=== PATIENT | male | born 1960 | race Caucasian/White ===

== ENCOUNTER → 2016-12-17 | Outpatient (CLI) | payer BC ==
[~2016-12-17] MED LIST: ALLO100T PO; ALLO300T2 PO; CYAN10005 PO; DICL1.3D21 TD; ENAL20TA PO; GLUCTAB4 PO; INSDGI SC; INSU100I2 SQ; METF-383 PO; PANT40TA PO; SILO8CAP PO; TPRSR50 PO; TRAM-453 PO; TYLOTC500 PO; ZOLP5TAB PO
[2016-12-17 13:38] LABS: BASO % 0.6 %; BASO ABS # 0.04 K/uL (0-0.2); COMPLETE YES; EOS % 4.5 %; HEMATOCRIT 38.9 % (42-52); IG% 0.3 %; MEAN CELL VOLUME 73.1 fL (80-100); MEAN CORPUSCULAR HEMOGLOBIN 22.9 pg (25-34); MEAN CORPUSCULAR HGB CONC 31.4 g/dl (32-36); MEAN PLATELET VOLUME 9.3 fL (7.4-10.4); MONO % 7.5 %; NEUT % 62.1 %; PLATELET COUNT 292 K/uL (130-400); RED BLOOD COUNT 5.32 M/uL (4.7-6.1)
[2016-12-17 14:14] LABS: ESTIMATED AVERAGE GLUCOSE 169 mg/dl; HA1C FLAG Normal (Normal)
== END | disposition home or self-care (01) ==
LOC: C.LABMFLN 08:05
PROVIDERS: ATTEND Family Medicine
DX: D64.9 Anemia, unspecified (principal); E11.9 Type 2 diabetes mellitus without complications

== ENCOUNTER → 2017-04-06 | Outpatient (CLI) | payer BC ==
[2017-04-06 13:23] LABS: BASO % 0.6 %; BASO ABS # 0.04 K/uL (0-0.2); COMPLETE YES; EOS % 5.5 %; HEMATOCRIT 42.7 % (42-52); IG% 0.6 %; LYMPH % 29.5 %; LYMPH ABS # 1.93 K/uL (1.2-3.4); MEAN CELL VOLUME 80.1 fL (80-100); MEAN CORPUSCULAR HEMOGLOBIN 26.5 pg (25-34); MEAN PLATELET VOLUME 9.2 fL (7.4-10.4); MONO % 6.6 %; NEUT % 57.2 %; PLATELET COUNT 268 K/uL (130-400); RED BLOOD COUNT 5.33 M/uL (4.7-6.1); WHITE BLOOD COUNT 6.54 K/uL (4.8-10.8)
[2017-04-06 13:39] LABS: ESTIMATED AVERAGE GLUCOSE 174 mg/dl; HA1C FLAG Normal (Normal)
[2017-04-06 14:00] LABS: BLOOD UREA NITROGEN 14 mg/dl (7-18); BUN/CREATININE RATIO 16.6 (10-20); CALCIUM 9.1 mg/dl (8.5-10.1); CARBON DIOXIDE 30 mmol/L (21-32); CHLORIDE 106 mmol/L (98-107); CREATININE 0.86 mg/dl (0.60-1.40); GLUCOSE 157 mg/dl (70-99); SODIUM 139 mmol/L (136-145)
[2017-04-06 14:05] LABS: FERRITIN 26.1 ng/ml (8.0-388.0); PHOSPHORUS 3.1 mg/dl (2.5-4.9)
--- NOTE | 2017-04-21 10:04 | CODING QUERY MEDICAL NECESSITY ---
SUPPORTING DIAGNOSIS NEEDED Dr. Bower, A supporting diagnosis is required for the test/procedure performed on this patient in order for us to be reimbursed by the patient's insurance. Please provide a supporting diagnosis for the following test/procedure listed below next to the test name along with your signature. *If there is no additional diagnosis for this patient that would support the following test/procedure please document that below next to the test/procedure. Test(s)/Procedure(s) that require a supporting diagnosis: * [id number] PSA DIAGNOSIS: DATE OF SERVICE: 04/06/17 Provider Signature: Date: Thank you Derek Gore [facility] Information Management Once completed, please kindly fax back to [phone] For questions please call [phone]
== END | disposition home or self-care (01) ==
LOC: C.LABMFLN 09:08
PROVIDERS: ATTEND Family Medicine
DX: C67.9 Malignant neoplasm of bladder, unspecified (principal); E11.9 Type 2 diabetes mellitus without complications; D64.9 Anemia, unspecified; N40.1 Benign prostatic hyperplasia with lower urinary tract symptoms

== ENCOUNTER → 2017-07-08 | Outpatient (CLI) | payer BC ==
[2017-07-08 13:45] LABS: ESTIMATED AVERAGE GLUCOSE 163 mg/dl; HA1C FLAG Normal (Normal)
== END | disposition home or self-care (01) ==
LOC: C.LABMFLN 09:39
PROVIDERS: ATTEND Family Medicine
DX: E11.42 Type 2 diabetes mellitus with diabetic polyneuropathy (principal)

== ENCOUNTER → 2017-10-14 | Outpatient (CLI) | payer BC ==
[2017-10-14 12:40] LABS: BASO % 0.3 %; BASO ABS # 0.02 K/uL (0-0.2); EOS % 1.8 %; EOS ABS # 0.13 K/uL (0-0.5); HEMATOCRIT 45.2 % (42-52); HEMOGLOBIN 15.1 g/dL (14.0-18.0); IG# 0.05 K/uL (0.00-0.02); LYMPH ABS # 1.66 K/uL (1.2-3.4); MEAN CELL VOLUME 84.5 fL (80-100); MEAN CORPUSCULAR HEMOGLOBIN 28.2 pg (25-34); MEAN CORPUSCULAR HGB CONC 33.4 g/dl (32-36); MEAN PLATELET VOLUME 9.6 fL (7.4-10.4); MONO % 6.6 %; MONO ABS # 0.48 K/uL (0.11-0.59); NEUT % 67.6 %; NEUT ABS # 4.88 K/uL (1.4-6.5); PLATELET COUNT 262 K/uL (130-400); RED CELL DISTRIBUTION WIDTH CV 13.5 % (11.5-14.5); RED CELL DISTRIBUTION WIDTH SD 40.8 fL (36.4-46.3); WHITE BLOOD COUNT 7.22 K/uL (4.8-10.8)
[2017-10-14 13:09] LABS: HEMOGLOBIN A1C 7.5 % (4.5-5.6)
[2017-10-14 15:03] LABS: ALBUMIN 3.7 gm/dl (3.4-5.0); ALT/SGPT 46 U/L (12-78); AST/SGOT 31 U/L (15-37); BLOOD UREA NITROGEN 13 mg/dl (7-18); CALCIUM 9.2 mg/dl (8.5-10.1); CARBON DIOXIDE 33 mmol/L (21-32); CHOLESTEROL 158 mg/dl (0-200); CREATININE 0.89 mg/dl (0.60-1.40); GLUCOSE 180 mg/dl (70-99); POTASSIUM 4.5 mmol/L (3.5-5.1); SODIUM 137 mmol/L (136-145); URIC ACID 4.7 mg/dl (2.6-7.2)
[2017-10-14 15:06] LABS: ALKALINE PHOSPHATASE 102 U/L (45-117); LDL CHOLESTEROL CALCULATED 77 mg/dl; TOTAL PROTEIN 7.1 gm/dl (6.4-8.2)
== END | disposition home or self-care (01) ==
LOC: C.LABMFLN 10:07
PROVIDERS: ATTEND Family Medicine
DX: E11.9 Type 2 diabetes mellitus without complications (principal); M1A.9XX0 Chronic gout, unspecified, without tophus (tophi); E78.5 Hyperlipidemia, unspecified

== ENCOUNTER 2017-11-04 17:50 | Observation (INO) | payer BC ==
[~2017-11-04] VITALS: Ht 182.9 cm; Wt 132.0 kg
[~2017-11-04 17:50] MED LIST changes: -AMOX875T PO; -BENZ100C7 PO; -FENTANYL CITRATE INJ 50 MCG/1 ML 2 ML VIAL ONE; +HYDROmorphone HCL 0.5MG/ML 50 ML CASSETTE IV ONE; -HYDROmorphone HCL 0.5MG/ML 50 ML CASSETTE ONE; -OMEG10007 PO; -ONDANSETRON INJ 2 MG/ML 2 ML VIAL ONE; -OPTIRAY 320 IV PRN; -OXYC-57 PO
[2017-11-04 19:02] LABS: BASO % 0.2 %; BASO ABS # 0.02 K/uL (0-0.2); EOS % 1.8 %; EOS ABS # 0.15 K/uL (0-0.5); HEMATOCRIT 42.2 % (42-52); HEMOGLOBIN 14.3 g/dL (14.0-18.0); IG# 0.05 K/uL (0.00-0.02); LYMPH % 10.2 %; LYMPH ABS # 0.87 K/uL (1.2-3.4); MEAN CELL VOLUME 83.6 fL (80-100); MEAN CORPUSCULAR HEMOGLOBIN 28.3 pg (25-34); MEAN CORPUSCULAR HGB CONC 33.9 g/dl (32-36); MEAN PLATELET VOLUME 9.6 fL (7.4-10.4); MONO % 6.9 %; MONO ABS # 0.59 K/uL (0.11-0.59); NEUT % 80.3 %; NEUT ABS # 6.85 K/uL (1.4-6.5); PLATELET COUNT 288 K/uL (130-400); RED CELL DISTRIBUTION WIDTH CV 13.9 % (11.5-14.5); RED CELL DISTRIBUTION WIDTH SD 42.2 fL (36.4-46.3); WHITE BLOOD COUNT 8.53 K/uL (4.8-10.8)
--- NOTE | 2017-11-04 19:13 | DIAGNOSTIC IMAGING REPORT ---
CHEST 2 VIEWS ROUTINE HISTORY: 56 years-old Male cough, chest tightness acute cough with chest tightness COMPARISON: Chest radiograph 05/31/2016 TECHNIQUE: PA and lateral views of the chest FINDINGS: Cardiac silhouette is mildly enlarged. Linear subsegmental opacity of the lingula. No pneumothorax, pleural effusion or lobar airspace consolidation. Degenerative changes of the shoulders and spine. Remote appearing right-sided rib fractures. IMPRESSION: Lingular subsegmental atelectasis or scarring without acute process. The above report was generated using voice recognition software. It may contain grammatical, syntax or spelling errors. Electronically signed by: Joshua Burton M.D. 11/04/2017 7:12 PM Dictated Date/Time: 11/04/2017 7:10 PM
[2017-11-04] MEDS ORDERED: ALBUTEROL HFA 8 GM INHALER INH ONE (19:15)
[2017-11-04] MEDS ORDERED: OMEG10007 PO (19:29)
[2017-11-04 19:37] LABS: ALBUMIN 2.9 gm/dl (3.4-5.0); CALCIUM 9.9 mg/dl (8.5-10.1); CREATININE 0.72 mg/dl (0.60-1.40); TOTAL PROTEIN 7.7 gm/dl (6.4-8.2)
--- NOTE | 2017-11-04 21:06 | EMERGENCY ROOM VISIT NOTE ---
History First contact with patient: 18:07 Chief Complaint: ABNORMAL DIAGNOSTIC TESTING Stated Complaint: ABN CT SCAN, ACUTE APPENDICITIS-PHYSICIAN REFERRED History of Present Illness The patient is a 56 year old male who presents to the Emergency Room with complaints of acute appendicitis seen on CT. The patient states that the pain started in the periumbilical region on Tuesday. He thought at first it was just his hernia from a prior surgery but states the pain is different in nature. He states it has increased in severity. The patient was nauseated but is not at this time. He denies any vomiting. The patient denies any change in bowel habits. The patient denies any fevers although he states he was sweaty. The patient is not on any blood thinners. The patient is diabetic. The patient last ate at 10 AM this morning. The patient was sent by his family doctor, Dr. Dorie Guillen with a CAT scan today and since it was positive was referred to the ER. The patient does have a history of cholecystectomy as well as gastric bypass. The patient also has a history of bladder cancer. The patient does admit that he had some slight coughing for the last week. Review of Systems 10 system review was performed and was negative unless stated otherwise history of present illness. Past Medical/Surgical History Medical Problems: (1) Asthma (2) Bronchitis (3) Diabetes (4) Heart disease (5) HTN (hypertension) (6) Hx of bladder cancer (7) Hyperlipidemia (8) Kidney disease Surgical Problems: (1) Hx of gastric bypass (2) Hx of shoulder surgery Cholecystectomy Family History Cancer Diabetes mellitus Heart disease Hypertension Social History Smoking Status: Never Smoker Alcohol Use: none Drug Use: none Marital Status: Housing Status: lives with family Occupation Status: employed Current/Historical Medications Scheduled Acetaminophen (Tylenol), 1,000 MG PO BID Allopurinol (Zyloprim), 300 MG PO HS Allopurinol (Zyloprim), 100 MG PO QAM Enalapril Maleate (Enalapril Maleate), 20 MG PO QPM Fish Oil ([place]-3), 2 CAP PO BID Bdqrvmkvkje-Yoo-Pel C-Manganes (Glucosamine Msm Complex), 1 TAB PO BID Insulin Glargine (Lantus), 90 UNITS SC QPM Insulin Lispro (Human) (Humalog Kwikpen), SQ PC Metformin Hcl (Glucophage), 850 MG PO TID Metoprolol Succinate (Metoprolol Succinate ER), 50 MG PO QAM Pantoprazole Sodium (Protonix), 40 MG PO DAILY Zolpidem Tartrate (Ambien), 5 MG PO HS Scheduled PRN Diclofenac Epolamine (Flector), 1 PATCH TD BID PRN for Pain Tramadol Hcl (Ultram), 50 MG PO BID PRN for Pain Physical Exam Vital Signs Date Time Temp Pulse Resp B/P (MAP) Pulse Ox O2 Delivery O2 Flow Rate FiO2 11/04/17 21:01 37.9 88 20 164/99 98 Room Air 11/04/17 19:25 37.4 86 16 155/85 93 Room Air 11/04/17 18:00 37.4 86 22 174/80 97 Room Air Physical Exam GENERAL: Morbidly obese 56-year-old white male appears in no acute distress. MENTAL Status: Alert and oriented 3. MOUTH: Mucosa is moist NECK: Supple, no lymphadenopathy noted. No carotid bruits noted. LUNGS: Patient has faint expiratory wheeze bilaterally. He coughs with deep inspiration. Good air exchange noted. CARDIAC: Regular rate and rhythm without murmur. Pulses is full and equal throughout. BACK: No CVA tenderness noted. ABDOMEN: Positive bowel sounds all 4 quadrants. Abdomen is firm. The patient has a autumn-umbilical palpable hernia. The patient has tenderness to palpation in the right lower quadrant with positive rebound tenderness. Difficult to evaluate for organomegaly secondary to patient's size. EXTREMITIES: No cyanosis or edema noted. Medical Decision & Procedures ER Provider Diagnostic Interpretation: CHEST 2 VIEWS ROUTINE HISTORY: 56 years-old Male cough, chest tightness acute cough with chest tightness COMPARISON: Chest radiograph 05/31/2016 TECHNIQUE: PA and lateral views of the chest FINDINGS: Cardiac silhouette is mildly enlarged. Linear subsegmental opacity of the lingula. No pneumothorax, pleural effusion or lobar airspace consolidation. Degenerative changes of the shoulders and spine. Remote appearing right-sided rib fractures. IMPRESSION: Lingular subsegmental atelectasis or scarring without acute process. The above report was generated using voice recognition software. It may contain grammatical, syntax or spelling errors. Electronically signed by: Joshua Burton M.D. 11/04/2017 7:12 PM [address] AND PELVIS CT WITH IV AND ORAL CONTRAST CT DOSE: 1905.11 mGy.cm HISTORY: ACUTE ABD PAIN,PERIUMBILICAL PAIN,ACUTE RLQ PAIN.. TECHNIQUE: Multiaxial CT images of the abdomen and pelvis were performed following the use of intravenous and oral contrast. A dose lowering technique was utilized adhering to the principles of ALARA. COMPARISON STUDY: Abdominal CT 02/02/2016. FINDINGS: There is moderate thickening of the cecal base with a small amount of fluid at the cecal base. The appendix is difficult to visualize due to the surrounding inflammatory change and fluid but appears to be located within the right lower quadrant. The thickened appendix measures up to 11 mm. Therefore, these findings are consistent with acute appendicitis. No definite vascular gas to suggest a perforation. Small amount of partially loculated fluid at the cecal base without abscess at this time. Bibasilar linear densities consistent with subsegmental atelectasis. Old, healed right rib fractures. There are 2 hypodense lesions within the right hepatic lobe with the largest measuring 3 cm. These are not significant change compared to the 2015 examination. These favor hemangiomas. There is also stable 2.2 cm lesion within the left hepatic lobe likely representing a hemangioma. Cholecystectomy. The spleen, adrenal glands, and pancreas are unremarkable. Stable left renal hypodense lesions. These likely represent cysts. The 12 mm hypodense lesion within the lower pole of the right kidney has significantly decreased in size since the prior study. Therefore, this is also likely benign. No hydronephrosis. No retroperitoneal lymphadenopathy. Prior gastric bypass. No evidence for bowel obstruction. Bladder not well distended. IMPRESSION: Inflammatory changes surrounding the thickened appendix consistent with acute appendicitis. No definite perforation or abscess identified at this time. Electronically signed by: Rebel Minor M.D. 11/04/2017 5:05 PM Laboratory Results 11/04/17 18:44 Red Blood Count 5.05, Mean Corpuscular Volume 83.6, Mean Corpuscular Hemoglobin 28.3, Mean Corpuscular Hemoglobin Concent 33.9, Mean Platelet Volume 9.6, Neutrophils (%) (Auto) 80.3, Lymphocytes (%) (Auto) 10.2, Monocytes (%) (Auto) 6.9, Eosinophils (%) (Auto) 1.8, Basophils (%) (Auto) 0.2, Neutrophils # (Auto) 6.85, Lymphocytes # (Auto) 0.87, Monocytes # (Auto) 0.59, Eosinophils # (Auto) 0.15, Basophils # (Auto) 0.02 11/04/17 18:44 11/04/17 19:42 Test 11/04/17 18:44 11/04/17 20:45 White Blood Count 8.53 K/uL (4.8-10.8) Red Blood Count 5.05 M/uL (4.7-6.1) Hemoglobin 14.3 g/dL (14.0-18.0) Hematocrit 42.2 % (42-52) Mean Corpuscular Volume 83.6 fL (80-100) Mean Corpuscular Hemoglobin 28.3 pg (25-34) Mean Corpuscular Hemoglobin Concent 33.9 g/dl (32-36) Platelet Count 288 K/uL (130-400) Mean Platelet Volume 9.6 fL (7.4-10.4) Neutrophils (%) (Auto) 80.3 % Lymphocytes (%) (Auto) 10.2 % Monocytes (%) (Auto) 6.9 % Eosinophils (%) (Auto) 1.8 % Basophils (%) (Auto) 0.2 % Neutrophils # (Auto) 6.85 K/uL (1.4-6.5) Lymphocytes # (Auto) 0.87 K/uL (1.2-3.4) Monocytes # (Auto) 0.59 K/uL (0.11-0.59) Eosinophils # (Auto) 0.15 K/uL (0-0.5) Basophils # (Auto) 0.02 K/uL (0-0.2) RDW Standard Deviation 42.2 fL (36.4-46.3) RDW Coefficient of Variation 13.9 % (11.5-14.5) Immature Granulocyte % (Auto) 0.6 % Immature Granulocyte # (Auto) 0.05 K/uL (0.00-0.02) Anion Gap 7.0 mmol/L (3-11) Est Creatinine Clear Calc Drug Dose 159.1 ml/min Estimated GFR () 120.0 Estimated GFR (Non- 103.6 BUN/Creatinine Ratio 14.3 (10-20) Calcium Level 9.9 mg/dl (8.5-10.1) Total Bilirubin 0.4 mg/dl (0.2-1) Direct Bilirubin mg/dl (0-0.2) Aspartate Amino Transf (AST/SGOT) U/L (15-37) Alanine Aminotransferase (ALT/SGPT) 48 U/L (12-78) Alkaline Phosphatase 109 U/L (45-117) Total Protein 7.7 gm/dl (6.4-8.2) Albumin 2.9 gm/dl (3.4-5.0) Lipase 105 U/L (73-393) Medications Administered Medications (Trade) Dose Ordered Sig/Clarence Route Start Time Stop Time Status Last Admin Dose Admin Albuterol (Ventolin Hfa Inhaler) 2 puffs NOW ONCE INH 11/04/17 19:15 11/04/17 19:16 DC 11/04/17 19:28 2 PUFFS ED Course The patient was evaluated. The patient's EMR medication list were reviewed. The patient's CT from today was reviewed. This revealed findings consistent with acute appendicitis. The patient was placed nothing by mouth. IV access was obtained. CBC and differential, renal profile, LFTs and lipase levels were ordered. Labs are reviewed. Urinalysis was ordered. Chest x-ray was ordered and interpreted by the radiologist as above without any acute cardiopulmonary disease. . Dr. Faulkner was consulted. The patient was reevaluated. The patient was coughing and wanted something for his cough. The patient cannot have anything by mouth since he might go to surgery this evening. Therefore he was given an Ventolin H if inhaler 2 puffs while in the ER. The patient's labs are reviewed. Patient's white count was normal. Renal profile just showed a slightly low albumin at 2.9. The patient stated that the inhaler worked for his cough. Dr. Faulkner evaluated the patient and is taking him to the OR. Medical Decision The patient presented with an abnormal CAT scan consistent with acute appendicitis therefore there was no other differential diagnosis entertained. [place] Drug Monitoring Program Search Results: patient reviewed within database Medication Reconcilliation Current Medication List: was personally reviewed by me Blood Pressure Screening Patient's blood pressure: Elevated blood pressure Blood pressure disposition: Elevated BP felt to be situational Impression Primary Impression: Acute appendicitis Departure Information Dispostion Being Evaluated By Surgeon Condition GOOD Referrals Dorie Guillen M.D. (PCP) Patient Instructions My [facility] Problem Qualifiers Primary Impression: Acute appendicitis Acute appendicitis type: with localized peritonitis Qualified Codes: K35.3 - Acute appendicitis with localized peritonitis
[2017-11-04] MEDS ORDERED: BUPIVACAINE 0.5 % 5 MG/1 ML MPF 30ML VIAL ONE (21:20)
[2017-11-04] MEDS ORDERED: CEFAZOLIN SOD 1 GM VIAL ONE (21:20)
[2017-11-04] MEDS ORDERED: HEPARIN SOD (PORCINE) 1000 UNIT/ML 10 ML VIAL ONE (21:20)
--- NOTE | 2017-11-04 21:20 | History and Physical ---
History & Physical Date & Time of Service: Nov 04, 2017 at 21:13 Chief Complaint: Abn Ct Scan, Acute Appendicitis-Physician Referred Primary Care Physician: Dorie Guillen M.D. History of Present Illness Source: patient This is a 56-year-old male who was sent to the emergency room after he had a CT scan today showing acute appendicitis. The patient's symptoms began 4 days ago. He developed what he described as severe abdominal pain that he felt was mostly in the center of his abdomen. He took a Vicodin and the discomfort seemed to resolve. He had some nausea at that time but did not vomit. Over the next 3 days however he had more of a dull ache-like pain that was in the periumbilical area but is now in the right lower quadrant is much more severe. He no longer has nausea and has not vomited yet. He has no chills. He took his temperature yesterday and it was 99.5. He has not had a change in his bowel habits with the exception of looser stool after having taken a laxative thinking that the symptoms may be related to constipation. He's had no dysuria or hematuria. He has no symptoms like this in the past. He is status post laparoscopic Tank-en-Y gastric bypass and status post laparoscopic cholecystectomy. He initially lost 100 pounds after the bypass but the weight loss now totals proximally 60 pounds. Past Medical/Surgical History Medical Problems: (1) Asthma Status: Chronic (2) Bronchitis Status: Chronic (3) Diabetes Status: Chronic (4) Heart disease Status: Chronic (5) HTN (hypertension) Status: Chronic (6) Hx of bladder cancer Status: Resolved (7) Hyperlipidemia Status: Chronic (8) Kidney disease Status: Chronic Surgical Problems: (1) Hx of gastric bypass Status: Resolved (2) Hx of shoulder surgery Status: Resolved (3) S/P laparoscopic cholecystectomy (4) S/P Bilateral carpal tunnel and ulnar nerve release Family History Cancer Diabetes mellitus Heart disease Hypertension Social History Smoking Status: Never Smoker Smokeless Tobacco Use: No Drug Use: none Marital Status: Occupational Status: employed Multi-Drug Resistant Organisms History of MDRO: No Allergies Coded Allergies: No Known Drug Allergy (Unverified Allergy, Unknown, NKDA, 11/04/17) Home Medications Scheduled Acetaminophen (Tylenol), 1,000 MG PO BID Allopurinol (Zyloprim), 300 MG PO HS Allopurinol (Zyloprim), 100 MG PO QAM Enalapril Maleate (Enalapril Maleate), 20 MG PO QPM Fish Oil ([place]-3), 2 CAP PO BID Ymxeyqtjwwk-Iuh-Khu C-Manganes (Glucosamine Msm Complex), 1 TAB PO BID Insulin Glargine (Lantus), 90 UNITS SC QPM Insulin Lispro (Human) (Humalog Kwikpen), SQ PC Metformin Hcl (Glucophage), 850 MG PO TID Metoprolol Succinate (Metoprolol Succinate ER), 50 MG PO QAM Pantoprazole Sodium (Protonix), 40 MG PO DAILY Zolpidem Tartrate (Ambien), 5 MG PO HS Scheduled PRN Diclofenac Epolamine (Flector), 1 PATCH TD BID PRN for Pain Tramadol Hcl (Ultram), 50 MG PO BID PRN for Pain Review of Systems Constitutional: + fever, + sweats, No chills Respiratory: No cough, No sputum Cardiovascular: No chest pain, No orthopnea Abdomen: + problem reported (as per HPI) Genitourinary - Male: + problem reported (as per HPI) Endocrine: No fatigue Integumentary: No rash Physical Exam Vital Signs Date Time Temp Pulse Resp B/P (MAP) Pulse Ox O2 Delivery O2 Flow Rate FiO2 11/04/17 21:01 37.9 88 20 164/99 98 Room Air 11/04/17 19:25 37.4 86 16 155/85 93 Room Air 11/04/17 18:00 37.4 86 22 174/80 97 Room Air General Appearance: no apparent distress, + obese Head: normocephalic Neck: supple, no adenopathy Cardiovascular: regular rate, rhythm, no edema Abdomen/GI: normal bowel sounds, soft, + tenderness (RLQ) Back: normal inspection, no CVA tenderness Extremities/Musculoskelatal: normal inspection Skin: normal color Diagnostics Laboratory Results Results Past 24 Hours Test 11/04/17 18:44 11/04/17 19:42 11/04/17 20:29 Range/Units White Blood Count 8.53 4.8-10.8 K/uL Red Blood Count 5.05 4.7-6.1 M/uL Hemoglobin 14.3 14.0-18.0 g/dL Hematocrit 42.2 42-52 % Mean Corpuscular Volume 83.6 80-100 fL Mean Corpuscular Hemoglobin 28.3 25-34 pg Mean Corpuscular Hemoglobin Concent 33.9 32-36 g/dl Platelet Count 288 130-400 K/uL Mean Platelet Volume 9.6 7.4-10.4 fL Neutrophils (%) (Auto) 80.3 % Lymphocytes (%) (Auto) 10.2 % Monocytes (%) (Auto) 6.9 % Eosinophils (%) (Auto) 1.8 % Basophils (%) (Auto) 0.2 % Neutrophils # (Auto) 6.85 1.4-6.5 K/uL Lymphocytes # (Auto) 0.87 1.2-3.4 K/uL Monocytes # (Auto) 0.59 0.11-0.59 K/uL Eosinophils # (Auto) 0.15 0-0.5 K/uL Basophils # (Auto) 0.02 0-0.2 K/uL RDW Standard Deviation 42.2 36.4-46.3 fL RDW Coefficient of Variation 13.9 11.5-14.5 % Immature Granulocyte % (Auto) 0.6 % Immature Granulocyte # (Auto) 0.05 0.00-0.02 K/uL Sodium Level 134 136-145 mmol/L Potassium Level 3.9 3.5-5.1 mmol/L Chloride Level 99 98-107 mmol/L Carbon Dioxide Level 27 21-32 mmol/L Anion Gap 7.0 3-11 mmol/L Blood Urea Nitrogen 10 7-18 mg/dl Creatinine 0.72 0.60-1.40 mg/dl Est Creatinine Clear Calc Drug Dose 159.1 ml/min Estimated GFR () 120.0 Estimated GFR (Non- 103.6 BUN/Creatinine Ratio 14.3 10-20 Random Glucose 162 70-99 mg/dl Calcium Level 9.9 8.5-10.1 mg/dl Total Bilirubin 0.4 0.2-1 mg/dl Direct Bilirubin 0-0.2 mg/dl Aspartate Amino Transf (AST/SGOT) 15-37 U/L Alanine Aminotransferase (ALT/SGPT) 48 12-78 U/L Alkaline Phosphatase 109 45-117 U/L Total Protein 7.7 6.4-8.2 gm/dl Albumin 2.9 3.4-5.0 gm/dl Lipase 105 73-393 U/L Urine Color YELLOW Urine Appearance CLEAR CLEAR Urine pH 5.0 4.5-7.5 Urine Specific [place] > 1.045 1.000-1.030 Urine Protein 1+ NEG Urine Glucose (UA) NEG NEG Urine Ketones TRACE NEG Urine Occult Blood NEG NEG Urine Nitrite NEG NEG Urine Bilirubin NEG NEG Urine Urobilinogen NEG NEG Urine Leukocyte Esterase NEG NEG Urine WBC (Auto) 1-5 0-5 /hpf Urine RBC (Auto) 0-4 0-4 /hpf Urine Hyaline Casts (Auto) 0 0-5 /lpf Urine Epithelial Cells (Auto) 0-5 0-5 /lpf Urine Bacteria (Auto) NEG NEG Diagnostic Radiology ABDOMEN AND PELVIS CT WITH IV AND ORAL CONTRAST CT DOSE: 1905.11 mGy.cm HISTORY: ACUTE ABD PAIN,PERIUMBILICAL PAIN,ACUTE RLQ PAIN.. TECHNIQUE: Multiaxial CT images of the abdomen and pelvis were performed following the use of intravenous and oral contrast. A dose lowering technique was utilized adhering to the principles of ALARA. COMPARISON STUDY: Abdominal CT 02/02/2016. FINDINGS: There is moderate thickening of the cecal base with a small amount of fluid at the cecal base. The appendix is difficult to visualize due to the surrounding inflammatory change and fluid but appears to be located within the right lower quadrant. The thickened appendix measures up to 11 mm. Therefore, these findings are consistent with acute appendicitis. No definite vascular gas to suggest a perforation. Small amount of partially loculated fluid at the cecal base without abscess at this time. Bibasilar linear densities consistent with subsegmental atelectasis. Old, healed right rib fractures. There are 2 hypodense lesions within the right hepatic lobe with the largest measuring 3 cm. These are not significant change compared to the 2015 examination. These favor hemangiomas. There is also stable 2.2 cm lesion within the left hepatic lobe likely representing a hemangioma. Cholecystectomy. The spleen, adrenal glands, and pancreas are unremarkable. Stable left renal hypodense lesions. These likely represent cysts. The 12 mm hypodense lesion within the lower pole of the right kidney has significantly decreased in size since the prior study. Therefore, this is also likely benign. No hydronephrosis. No retroperitoneal lymphadenopathy. Prior gastric bypass. No evidence for bowel obstruction. Bladder not well distended. IMPRESSION: Inflammatory changes surrounding the thickened appendix consistent with acute appendicitis. No definite perforation or abscess identified at this time. Electronically signed by: Rebel Minor M.D. 11/04/2017 5:05 PM Impression Assessment and Plan This patient is a 4 day history of abdominal pain. White count is not elevated over his CAT scan shows significant inflammatory changes no right lower quadrant. There is no CT evidence of perforation of the appendix. I explained the patient will that I would recommend appendectomy. We did discuss treating it conservatively with antibiotics but he would prefer surgery. He understands or going to try to do this laparoscopically with because of the significant inflammatory change in the right lower quadrant there is a significant chance that he is going to need to have this converted to an open procedure. I explained to him the procedure and the possible complications of those procedures. I answered his questions. He has signed a consent form.
[2017-11-04] MEDS ORDERED: FENTANYL CITRATE INJ 50 MCG/1 ML 2 ML VIAL ONE ×2 (21:29→22:41)
[2017-11-04] MEDS ORDERED: NALOXONE HCL 0.4 MG/1 ML VIAL/CARP IV PRN (21:30)
[2017-11-04] MEDS ORDERED: PHENYLEPHRINE 100MCG/ML 5ML SYR IV PRN (21:30)
[2017-11-04] MEDS ORDERED: ONDANSETRON INJ 2 MG/ML 2 ML VIAL IV PRN (21:30)
[2017-11-04] MEDS ORDERED: HYDROmorphone INJ 2 MG/ML SYR/VIAL IV PRN (21:30)
[2017-11-04] MEDS ORDERED: LABETALOL HCL IV 5 MG/ML 20ML IV PRN (21:30)
[2017-11-04] MEDS ORDERED: MEPERIDINE HCL 25 MG/ML CARP IV PRN (21:30)
[2017-11-04] MEDS ORDERED: FLUMAZENIL 0.1 MG/1 ML 10 ML VIAL IV PRN (21:30)
[2017-11-04] MEDS ORDERED: ATROPINE SULFATE 0.1 MG/ML 5ML SYR IV PRN (21:30)
[2017-11-04] MEDS ORDERED: EpHEDrine SULFATE INJ 50 MG/ML AMP IV PRN (21:30)
[2017-11-04] MEDS ORDERED: PROPOFOL IV EMULSION 10 MG/ML 20 ML VIAL IV ONE (21:35)
[2017-11-04] MEDS ORDERED: ONDANSETRON INJ 2 MG/ML 2 ML VIAL ONE (21:36)
[2017-11-04] MEDS ORDERED: SUCCINYLCHOLINE CHLORIDE 20 MG/ML 10 ML VIAL IV ONE (21:36)
[2017-11-04] MEDS ORDERED: LIDOCAINE HCL 2% 2 ML VIAL (20MG/ML) ONE (21:36)
[2017-11-04] MEDS ORDERED: DEXAMETHASONE SOD INJ 4 MG/ML VIAL ONE (21:36)
--- NOTE | 2017-11-04 21:41 | Medical Consult ---
Consultation Date of Consultation: Nov 04, 2017. Attending Physician: Reason for Consultation: Management of hypertension and diabetes History of Present Illness 56-year-old male with past medical history of hypertension, diabetes type 2, coronary artery disease, asthma, status post gastric bypass, transitional cell cancer of the bladder, hyperlipidemia presented to the ER with acute appendicitis as visualized on CT. The patient stated that he started to develop periumbilical abdominal pain on Tuesday which was intermittent and associated with some nausea. He had seen his PCP yesterday who had recommended a CT abdomen and pelvis and was found to have acute appendicitis. States that his pain was intermittent and tolerable. Denies any vomiting or change in bowel habits. Medicine has been consulted for management of hypertension and diabetes Past Medical/Surgical History Medical Problems: (1) Acute appendicitis Status: Acute (2) Atypical chest pain Status: Acute Family History Cancer Diabetes mellitus Heart disease Hypertension Social History Smoking Status: Never Smoker Smokeless Tobacco Use: No Drug Use: none Marital Status: Housing Status: lives with family Occupation Status: employed Allergies Coded Allergies: No Known Drug Allergy (Unverified Allergy, Unknown, NKDA, 11/04/17) Home Medications Home Meds and Scripts Medications Dose Route/Sig Max Daily Dose Days Date Category Dose Instructions [place]-3 (Fish Oil) 1 Ea Cap 2 Cap PO BID 11/04/17 Reported Glucosamine Msm Complex (Kkqnkmpsgfn-Ngm-Arm C-Manganes) 1 Tab Tab 1 Tab PO BID 03/24/15 Reported Tylenol (Acetaminophen) 500 Mg Tab 1,000 Mg PO BID 02/26/14 Reported Ultram (Tramadol Hcl) 50 Mg Tab 50 Mg PO BID PRN 02/11/14 Reported Ambien (Zolpidem Tartrate) 5 Mg Tab 5 Mg PO HS 02/11/14 Reported Protonix (Pantoprazole Sodium) 40 Mg Tab 40 Mg PO DAILY 02/11/14 Reported Metoprolol Succinate ER (Metoprolol Succinate) 50 Mg Tabcr 50 Mg PO QAM 02/11/14 Reported Glucophage (Metformin Hcl) 850 Mg Tab 850 Mg PO TID 02/11/14 Reported Lantus (Insulin Glargine) Vial 90 Units SC QPM 02/11/14 Reported Humalog Kwikpen (Insulin Lispro (Human)) 100 Unit/Ml Inj SQ PC 02/11/14 Reported SLIDING SCALE Flector (Diclofenac Epolamine) 1.3 % Dis 1 Patch TD BID PRN 02/11/14 Reported Enalapril Maleate 20 Mg Tab 20 Mg PO QPM 02/11/14 Reported Zyloprim (Allopurinol) 100 Mg Tab 100 Mg PO QAM 02/11/14 Reported TAKES TOTAL 400MG Zyloprim (Allopurinol) 300 Mg Tab 300 Mg PO HS 02/11/14 Reported TAKES TOTAL 400MG Current Inpatient Medications Current Inpatient Medications Medications (Trade) Dose Ordered Sig/Clarence Route Start Time Stop Time Status Last Admin Dose Admin Hydromorphone HCl (Dilaudid Inj) 0.5 mg Q5M PRN IV 11/04/17 21:30 11/05/17 03:00 Fentanyl Citrate (Fentanyl Inj) 25 mcg Q5M PRN IV 11/04/17 21:30 11/05/17 03:00 Naloxone HCl (Narcan Inj) 0.2 mg Q2M PRN IV 11/04/17 21:30 11/05/17 03:00 Meperidine HCl (Demerol Inj) 12.5 mg Q5M PRN IV 11/04/17 21:30 11/05/17 03:00 Ondansetron HCl (Zofran Inj) 4 mg ONE PRN IV 11/04/17 21:30 11/05/17 03:00 Flumazenil (Romazicon Inj) 0.2 mg Q2M PRN IV 11/04/17 21:30 11/05/17 03:00 Labetalol HCl (Normodyne IV) 5 mg Q5M PRN IV 11/04/17 21:30 11/05/17 03:00 Ephedrine Sulfate (EpHEDrine SULFATE INJ) 5 mg Q5M PRN IV 11/04/17 21:30 11/05/17 03:00 Atropine Sulfate (Atropine Sulfate 0.1mg/ml Inj) 0.5 mg Q1M PRN IV 11/04/17 21:30 11/05/17 03:00 Phenylephrine HCl (Lasha-Synephrine 500MCG/5ML Syr) 100 mcg Q5M PRN IV 11/04/17 21:30 11/05/17 03:00 Review of Systems Constitutional: No fever, No chills Eyes: No worsening of vision ENT: No hearing loss Respiratory: No cough, No sputum, No shortness of breath, No dyspnea on exertion Cardiovascular: No chest pain, No palpitations Abdomen: + pain, + nausea, No vomiting, No diarrhea Genitourinary - Male: No hematuria, No dysuria Neurologic: No memory loss, No paralysis Psychiatric: No depression symptoms Endocrine: No fatigue Hematologic / Lymphatic: No abnormal bleeding/bruising Physical Exam Date Time Temp Pulse Resp B/P (MAP) Pulse Ox O2 Delivery O2 Flow Rate FiO2 11/04/17 21:01 37.9 88 20 164/99 98 Room Air 11/04/17 19:25 37.4 86 16 155/85 93 Room Air 11/04/17 18:00 37.4 86 22 174/80 97 Room Air General Appearance: WD/WN, no apparent distress Eyes: normal inspection ENT: normal ENT inspection, hearing grossly normal Neck: supple Respiratory/Chest: chest non-tender, lungs clear, normal breath sounds Cardiovascular: regular rate, rhythm, no edema Abdomen/GI: normal bowel sounds, soft, + tenderness (carmen RLQ) Extremities/Musculoskelatal: no pedal edema, normal range of motion Neurologic/Psych: alert, normal mood/affect, oriented x 3 Laboratory Results Last 24 Hours Test 11/04/17 18:44 11/04/17 19:42 11/04/17 20:29 White Blood Count 8.53 K/uL Red Blood Count 5.05 M/uL Hemoglobin 14.3 g/dL Hematocrit 42.2 % Mean Corpuscular Volume 83.6 fL Mean Corpuscular Hemoglobin 28.3 pg Mean Corpuscular Hemoglobin Concent 33.9 g/dl Platelet Count 288 K/uL Mean Platelet Volume 9.6 fL Neutrophils (%) (Auto) 80.3 % Lymphocytes (%) (Auto) 10.2 % Monocytes (%) (Auto) 6.9 % Eosinophils (%) (Auto) 1.8 % Basophils (%) (Auto) 0.2 % Neutrophils # (Auto) 6.85 K/uL Lymphocytes # (Auto) 0.87 K/uL Monocytes # (Auto) 0.59 K/uL Eosinophils # (Auto) 0.15 K/uL Basophils # (Auto) 0.02 K/uL RDW Standard Deviation 42.2 fL RDW Coefficient of Variation 13.9 % Immature Granulocyte % (Auto) 0.6 % Immature Granulocyte # (Auto) 0.05 K/uL Sodium Level 134 mmol/L Potassium Level mmol/L 3.9 mmol/L Chloride Level 99 mmol/L Carbon Dioxide Level 27 mmol/L Anion Gap 7.0 mmol/L Blood Urea Nitrogen 10 mg/dl Creatinine 0.72 mg/dl Est Creatinine Clear Calc Drug Dose 159.1 ml/min Estimated GFR () 120.0 Estimated GFR (Non- 103.6 BUN/Creatinine Ratio 14.3 Random Glucose 162 mg/dl Calcium Level 9.9 mg/dl Total Bilirubin 0.4 mg/dl Direct Bilirubin mg/dl Aspartate Amino Transf (AST/SGOT) U/L Alanine Aminotransferase (ALT/SGPT) 48 U/L Alkaline Phosphatase 109 U/L Total Protein 7.7 gm/dl Albumin 2.9 gm/dl Lipase 105 U/L Urine Color YELLOW Urine Appearance CLEAR Urine pH 5.0 Urine Specific [place] > 1.045 Urine Protein 1+ Urine Glucose (UA) NEG Urine Ketones TRACE Urine Occult Blood NEG Urine Nitrite NEG Urine Bilirubin NEG Urine Urobilinogen NEG Urine Leukocyte Esterase NEG Urine WBC (Auto) 1-5 /hpf Urine RBC (Auto) 0-4 /hpf Urine Hyaline Casts (Auto) 0 /lpf Urine Epithelial Cells (Auto) 0-5 /lpf Urine Bacteria (Auto) NEG Assessment & Plan 56-year-old male with past medical history of hypertension, diabetes type 2, coronary artery disease, asthma, status post gastric bypass, transitional cell cancer of the bladder, hyperlipidemia presented to the ER with acute appendicitis as visualized on CT. Acute appendicitis: -Appendectomy per general surgery Hypertension: - Continue enalapril, metoprolol Diabetes type 2: - Home medications include Lantus 90 units, insulin sliding scale and metformin 850 mg 3 times a day -We will hold metformin and start him on insulin sliding scale. We will reduce Lantus dosing tonight considering he is nothing by mouth since this morning, received about 12 units of Lantus - Blood sugars can be reassessed and Lantus dosing may be increased tomorrow Coronary artery disease: Had cardiac catheterization with no stents - Continue metoprolol 50 mg every morning and enalapril - Does not take aspirin due to history of gastric bypass -Developed myalgias with statins and was recommended to take Fish oil supplements by cardiology Asthma: - DuoNeb when necessary Transitional cell cancer of bladder: Stable Full code DVT prophylaxis : SCDs Disposition: MedSurg Attending addendum: I have physically seen this patient, have supervised the medical residents activities, and agree with the H&P unless as otherwise noted. Assessment and Plan: Acute appendicitis--per Dr. Faulkner general surgery Diabetes mellitus-- Hold metformin Reduce Lantus insulin [address] on 4 times a day with NovoLog coverage per scale, then change to before meals and at bedtime when able to eat and readjust Lantus at that time CAD/hypertension-- Hold enalapril in the postop interval Give metoprolol with hold parameters, if unable to take by mouth, will change to IV. If on med surg, will temporarily use hydralazine IV Asthma-- Duonebs every 2 hours when necessary Resident Tracking Resident Involvement: Resident Care Provided Care Provided: Adult Hospital Medicine
[2017-11-04] MEDS ORDERED: ESMOLOL HCL 10 MG/ML 10 ML VIAL ONE (22:41)
[2017-11-04] MEDS ORDERED: GLYCOPYRROLATE INJ 0.2 MG/ML VIAL ONE (22:49)
[2017-11-04] MEDS ORDERED: NEOSTIGMINE METHYLSULFATE 5 MG/5 ML SYR ONE (22:49)
[2017-11-05] VITALS (14 sets, daily range): BP systolic 125–159; BP diastolic 71–85; PULSE 78–91; TEMP 37.1–38.1; O2SAT 83–96; Ht 182.9 cm; Wt 132.0 kg
[2017-11-05] MEDS ORDERED: FENTANYL CITRATE INJ 50 MCG/1 ML 2 ML VIAL ONE ×2 (00:17→00:46)
[2017-11-05] MEDS ORDERED: ROCURONIUM BROMIDE 10 MG/ML 5 ML VIAL IV ONE (00:39)
[2017-11-05] MEDS: SODIUM CHLORIDE 0.9% 1000ML 1,000 ML IV SCH ×4 (00:49→11:53)
--- NOTE | 2017-11-05 00:49 | [facility] Post Operative Brief Note ---
Immediate Operative Summary Operative Date Nov 05, 2017. Pre-Operative Diagnosis Acute Appendicitis Post-Operative Diagnosis Acute Appendicitis Procedure(s) Performed Laparoscopic Appendectomy converted to Open Appendectomy Surgeon Dr. Clement Faulkner Fruit Pitter Surgeon(s) none Estimated Blood Loss 30 ml Findings See Below See dication Specimens Microbiology- #1: Peritoneal Fluid-gram stain, culture and sensitivity, anaerobic, aerobic Tissue- A: Appendix Drains None Anesthesia Type General Complication(s) none
[2017-11-05] MEDS ORDERED: NALOXONE HCL 0.4 MG/1 ML VIAL/CARP IV PRN (01:00)
[2017-11-05] MEDS ORDERED: ONDANSETRON INJ 2 MG/ML 2 ML VIAL IV PRN (01:00)
[2017-11-05] MEDS: FENTANYL CITRATE INJ 50 MCG/1 ML 2 ML VIAL IV PRN ×4 (01:28→01:43)
[2017-11-05] MEDS ORDERED: NURSING VERBAL MED ORDER ONE (01:30)
[2017-11-05] MEDS ORDERED: INSULIN HUMAN REGULAR PER UNIT 10 UNITS in SYRINGE 9.9 ML IV SCH (01:30)
[2017-11-05] MEDS: HYDROmorphone HCL 0.5MG/ML 50 ML CASSETTE IV PRN ×3 (01:46→22:48)
--- NOTE | 2017-11-05 02:08 | OPERATIVE REPORT ---
DATE OF OPERATION: 11/05/2017 PREOPERATIVE DIAGNOSIS: Acute appendicitis. POSTOPERATIVE DIAGNOSIS: Same. PROCEDURE: Attempted laparoscopic appendectomy with completion open appendectomy. SURGEON: Clement Faulkner MD. FINDINGS: The appendix was inflamed and dilated. The base of the appendix appeared normal, but the cecum had inflammatory response in the entire distal half. The appendix was densely adherent to the posterior abdominal wall on the medial side of the inferior side and to the cecum itself. There was an inflammatory peel along the medial aspect of the cecum and on the terminal ileum and all of that made dissection planes impossible to establish laparoscopically in a safe fashion. After converting to an open, I was then able to find the appendix as it extended posteriorly behind the cecum and was densely adherent to the medial wall as well. There was no evidence of perforation or abscess. There was turbid fluid in the abdomen noted immediately after entering laparoscopically and some of this was removed using suction and sent for culture. The visible bowel otherwise appeared normal. TECHNIQUE: The patient was given a general anesthetic and the area was prepped and draped in the usual sterile fashion. Transverse incision was made below the umbilicus, carried down through the subcutaneous tissue to the fascia which was grasped with 2 Jana clamps and incised between. The peritoneum was identified, incised, and the introducer was placed bluntly. The abdomen was then insufflated to a pressure of 15 mmHg with carbon dioxide. The lower midline introducer and the left lower quadrant introducers were placed under direct vision through small skin incisions. The turbid fluid was identified using suction and some of that fluid was removed and sent for routine culture. I then placed the patient in an airplane left position and there was thickening of the fat over the terminal ileum that was off the anterior surface of the cecum. I then was able to roll the terminal ileum medially and there was dense attachment and adhesion of the cecum and proximal ascending colon to the lateral abdominal wall and I was able to bluntly separate that adhesive rind and roll it medially allowing for better mobility. I then was able to establish a plane between the terminal ileum and what proved to be the proximal portion of the appendix and worked posteriorly. I then continued to try to dissect what appeared to be the inflamed and thickened mesentery and appendix, but it was densely adherent to the medial wall of the cecum and I could not identify a plane safely and I decided then to open. A Sanjay-Jamar incision was made, carried down through the subcutaneous tissue. The fascia was opened transversely. The rectus muscle was retracted medially and eventually I had to divide some of the lateral rectus muscle in order to obtain adequate visualization. The posterior sheath and down the lateral side of the external oblique fascia was opened. The peritoneum was identified, opened and the abdomen was entered. The layers were opened along their lateral side. Even with the abdomen open and having mobilized some of the cecum in the distal colon, I was not able to easily identify the course of the appendix. I mobilized the terminal ileum and reflected that medially and then began up at the distal proximal ascending colon and worked inferiorly to mobilize that mobilized the lateral aspect of the cecum allowing me to get behind the cecum and then worked medially. In doing so, I was able to separate the thickened and inflamed mesentery and appendix and roll it laterally. I then had to dissect it off the cecum. Finding that plane was difficult as well but eventually I was able to do that and then identified the base of the appendix. There was a lot of inflammatory rind in that area and the cecum wall appeared inflamed as well. I felt that I was at the base of the appendix and I amputated it using the RENA stapler. I then oversewed the staple line and that whole area using interrupted 3-0 silk Lembert sutures. The area was inspected. There was no evidence of serosal openings. The entire area was placed back into its anatomic position. All sponge and needle counts were correct at that point. The pelvis was irrigated and the irrigation was removed. A separate stab incision was made superolateral to the incision. A 10 mm flat Vernon-De La Fuente was brought through that incision. The Vernon-De La Fuente was placed into the pelvis. It was secured with a 3-0 nylon. The posterior sheath and peritoneum were closed with a running 2-0 Vicryl. The internal oblique laterally was closed with a 0 PDS and the anterior rectus sheath and external oblique were closed with a running #1 PDS. The wound was irrigated. The fascia of the umbilical and left lower quadrant introducer sites was closed with interrupted 0 Vicryl and the skin of all the incisions was closed with waldo. The skin was anesthetized with 0.5% Marcaine. The estimated blood loss was 30 mL. Sponge, needle and instrument counts were correct again prior to closure. The patient tolerated the surgical procedure without complication and was transferred to recovery. I attest to the content of the Intraoperative Record and any orders documented therein. Any exception s are noted below.
--- NOTE | 2017-11-05 02:14 | Anesthesiology Progress Note ---
Anesthesia Post Op Note Date & Time Nov 05, 2017 at 02:14 Vital Signs Pain Intensity: 2 Vital Signs Past 12 Hours Date Time Temp Pulse Resp B/P (MAP) Pulse Ox O2 Delivery O2 Flow Rate FiO2 11/05/17 02:00 98 20 129/71 94 Nasal Cannula 4 11/05/17 01:50 85 20 135/86 95 Nasal Cannula 4 11/05/17 01:40 89 20 154/87 96 Nasal Cannula 4 11/05/17 01:30 84 20 154/87 96 Oxymask 10 11/05/17 01:20 85 16 145/78 96 Oxymask 10 11/05/17 01:10 36.6 87 16 168/82 96 Oxymask 11/04/17 21:01 37.9 88 20 164/99 98 Room Air 11/04/17 19:25 37.4 86 16 155/85 93 Room Air 11/04/17 18:00 37.4 86 22 174/80 97 Room Air Notes Mental Status: alert / awake / arousable, participated in evaluation Pt Amnestic to Procedure: Yes Nausea / Vomiting: adequately controlled Pain: adequately controlled Airway Patency, RR, SpO2: stable & adequate BP & HR: stable & adequate Hydration State: stable & adequate Anesthetic Complications: no major complications apparent The patient did well. He was given insulin and placed on the diabetic protocol for hyperglycemia in the PACU.
[2017-11-05] MEDS ORDERED: PHARMACY GLYCEMIC MGMT CONSULT PRN (02:45)
[2017-11-05] MEDS ORDERED: GLUCOSE 40% GEL 15 GM TUBE PO PRN ×2 (03:30)
[2017-11-05] MEDS ORDERED: GLUCAGON FOR INJ 1 MG VIAL SQ PRN ×2 (03:30)
[2017-11-05] MEDS ORDERED: GLUCOSE 10 TABS/TUBE PO PRN ×2 (03:30)
[2017-11-05] MEDS ORDERED: DEXTROSE 50% 50 ML SYR IV PRN ×2 (03:30)
[2017-11-05] MEDS ORDERED: INSULIN GLARGINE SOLOSTAR 100 UNITS/ML 3 ML PEN SC SCH ×3 (03:30→21:00)
[2017-11-05] MEDS ORDERED: INSULIN ASPART 100 UNITS/ML 3 ML PEN SC SCH ×2 (04:00→08:00)
[2017-11-05] MEDS ORDERED: INSULIN GLARGINE SOLOSTAR 100 UNITS/ML 3 ML PEN SC ONE (04:13)
[2017-11-05] MEDS ORDERED: ALBUT/IPRATROP 3MG/0.5MG NEB 3 ML VIAL INH PRN (04:15)
[2017-11-05] MEDS ORDERED: IV FLUIDS COMPLETED PRN (05:45)
[2017-11-05] MEDS: CEFOXITIN IV 2,000 MG in DEXTROSE 5% 50ML 50 ML IV SCH ×3 (05:52→22:12)
[2017-11-05] MEDS: METOPROLOL SUCC 50MG EXT REL TAB PO SCH (08:09)
[2017-11-05] MEDS: ALLOPURINOL 100 MG TAB PO SCH (08:09)
[2017-11-05] MEDS: PANTOprazole SOD 40 MG TAB PO SCH (08:09)
[2017-11-05] MEDS: INSULIN ASPART 100 UNITS/ML 3 ML PEN SC SCH ×4 (09:07→20:48)
--- NOTE | 2017-11-05 10:22 | Surgery Progress Note ---
Surgery Progress Note Date of Service Nov 05, 2017. Subjective Post OP Day: 0 + feeling well, + pain controlled, + diet (tolerated clear liquids), No nausea, No vomiting Objective Vital Signs: Date Time Temp Pulse Resp B/P (MAP) Pulse Ox O2 Delivery O2 Flow Rate FiO2 11/05/17 08:00 95 Nasal Cannula 2.0 11/05/17 05:50 37.2 90 18 144/80 (101) 95 Room Air 11/05/17 05:48 83 Room Air 11/05/17 05:04 95 Nasal Cannula 2.0 11/05/17 04:45 37.1 89 18 139/74 (95) 96 Nasal Cannula 4.0 11/05/17 03:49 37.1 88 16 137/80 Nasal Cannula 4.0 11/05/17 03:45 37.1 88 16 137/80 (99) 93 Nasal Cannula 4.0 11/05/17 03:13 37.3 78 16 146/84 (104) 93 Nasal Cannula 4.0 11/05/17 02:43 Nasal Cannula 4.0 11/05/17 02:43 37.2 78 16 159/74 (102) 93 Nasal Cannula 4.0 11/05/17 02:30 36.8 99 20 138/70 98 Nasal Cannula 4 11/05/17 02:20 36.8 99 20 152/79 94 Nasal Cannula 4 11/05/17 02:10 36.8 98 20 108/78 94 Nasal Cannula 4 11/05/17 02:00 98 20 129/71 94 Nasal Cannula 4 11/05/17 01:50 85 20 135/86 95 Nasal Cannula 4 11/05/17 01:40 89 20 154/87 96 Nasal Cannula 4 11/05/17 01:30 84 20 154/87 96 Oxymask 10 11/05/17 01:20 85 16 145/78 96 Oxymask 10 11/05/17 01:10 36.6 87 16 168/82 96 Oxymask 11/04/17 21:01 37.9 88 20 164/99 98 Room Air 11/04/17 19:25 37.4 86 16 155/85 93 Room Air 11/04/17 18:00 37.4 86 22 174/80 97 Room Air Physical Exam: ASMITA drainage (60 cc since surgery, serosanguinous) Abdomen: normal bowel sounds, non distended, soft Incision(s): clean, dry, intact, no erythema, no drainage Laboratory Results: Results Past 24 Hours Test 11/04/17 18:44 11/04/17 19:42 11/04/17 20:29 11/05/17 01:13 Range/Units White Blood Count 8.53 4.8-10.8 K/uL Red Blood Count 5.05 4.7-6.1 M/uL Hemoglobin 14.3 14.0-18.0 g/dL Hematocrit 42.2 42-52 % Mean Corpuscular Volume 83.6 80-100 fL Mean Corpuscular Hemoglobin 28.3 25-34 pg Mean Corpuscular Hemoglobin Concent 33.9 32-36 g/dl Platelet Count 288 130-400 K/uL Mean Platelet Volume 9.6 7.4-10.4 fL Neutrophils (%) (Auto) 80.3 % Lymphocytes (%) (Auto) 10.2 % Monocytes (%) (Auto) 6.9 % Eosinophils (%) (Auto) 1.8 % Basophils (%) (Auto) 0.2 % Neutrophils # (Auto) 6.85 1.4-6.5 K/uL Lymphocytes # (Auto) 0.87 1.2-3.4 K/uL Monocytes # (Auto) 0.59 0.11-0.59 K/uL Eosinophils # (Auto) 0.15 0-0.5 K/uL Basophils # (Auto) 0.02 0-0.2 K/uL RDW Standard Deviation 42.2 36.4-46.3 fL RDW Coefficient of Variation 13.9 11.5-14.5 % Immature Granulocyte % (Auto) 0.6 % Immature Granulocyte # (Auto) 0.05 0.00-0.02 K/uL Sodium Level 134 136-145 mmol/L Potassium Level 3.9 3.5-5.1 mmol/L Chloride Level 99 98-107 mmol/L Carbon Dioxide Level 27 21-32 mmol/L Anion Gap 7.0 3-11 mmol/L Blood Urea Nitrogen 10 7-18 mg/dl Creatinine 0.72 0.60-1.40 mg/dl Est Creatinine Clear Calc Drug Dose 159.1 ml/min Estimated GFR () 120.0 Estimated GFR (Non- 103.6 BUN/Creatinine Ratio 14.3 10-20 Random Glucose 162 70-99 mg/dl Calcium Level 9.9 8.5-10.1 mg/dl Total Bilirubin 0.4 0.2-1 mg/dl Direct Bilirubin 0-0.2 mg/dl Aspartate Amino Transf (AST/SGOT) 15-37 U/L Alanine Aminotransferase (ALT/SGPT) 48 12-78 U/L Alkaline Phosphatase 109 45-117 U/L Total Protein 7.7 6.4-8.2 gm/dl Albumin 2.9 3.4-5.0 gm/dl Lipase 105 73-393 U/L Urine Color YELLOW Urine Appearance CLEAR CLEAR Urine pH 5.0 4.5-7.5 Urine Specific [place] > 1.045 1.000-1.030 Urine Protein 1+ NEG Urine Glucose (UA) NEG NEG Urine Ketones TRACE NEG Urine Occult Blood NEG NEG Urine Nitrite NEG NEG Urine Bilirubin NEG NEG Urine Urobilinogen NEG NEG Urine Leukocyte Esterase NEG NEG Urine WBC (Auto) 1-5 0-5 /hpf Urine RBC (Auto) 0-4 0-4 /hpf Urine Hyaline Casts (Auto) 0 0-5 /lpf Urine Epithelial Cells (Auto) 0-5 0-5 /lpf Urine Bacteria (Auto) NEG NEG Bedside Glucose 240 70-99 mg/dl Test 11/05/17 02:00 11/05/17 03:44 11/05/17 08:18 Range/Units Bedside Glucose 227 218 211 70-99 mg/dl Microbiology Results 11/04/17 Gram Stain - Final, Resulted 11/04/17 Bacterial Culture, Resulted Pending Assessment & Plan S/P open appendectomy Stable Advance diet Continue IV antibiotics Ambulate
[2017-11-05] MEDS ORDERED: PIPERACILL/TAZOBAC CONSULT ACTIVE PRN (10:30)
--- NOTE | 2017-11-05 10:44 | Family Medicine Progress Note ---
Progress Note Date of Service Nov 05, 2017. Subjective Pt evaluation today including: conversation w/ patient (Pt c/o pain at surgical site, otherwise states he feels hungry and would like to eat. at bedside. States he follows his diabetes with Dr. Diallo every 3 months. Last A1C was about 7% per patient. HTN well controlled. Denies CP, SOB, dysuria, headache. ROS otherwise unremarkable as noted. ), conversation w/ family, physical exam, chart review, lab review Pain: controlled, WATCH COMMANDER PO Intake: clears - plan to start solid today Voiding: no voiding problems Medications Current Inpatient Medications Medications (Trade) Dose Ordered Sig/Clarence Route Start Time Stop Time Status Last Admin Dose Admin Ondansetron HCl (Zofran Inj) 4 mg Q6H PRN IV 11/05/17 01:00 12/05/17 00:59 Cefoxitin Sodium 2000 mg/Dextrose 70 ml @ 100 mls/hr Q8 IV 11/05/17 06:00 11/05/17 22:41 11/05/17 05:52 100 MLS/HR Sodium Chloride 1,000 ml @ 100 mls/hr Q10H IV 11/05/17 04:00 12/05/17 03:59 11/05/17 03:57 100 MLS/HR Naloxone HCl (Narcan Inj) 0.1 mg Q5M PRN IV 11/05/17 01:00 12/05/17 00:59 Hydromorphone HCl (Dilaudid Interactive Account Manager) 25 mg PRN PRN IV 11/05/17 01:00 11/19/17 00:59 11/05/17 02:45 25 MG Sodium Chloride 1,000 ml @ 15 mls/hr Q24H IV 11/05/17 00:49 12/05/17 00:48 Glucose (Glucose 40% Gel) 15-30 GRAMS 15 GRAMS... UD PRN PO 11/05/17 03:30 12/05/17 03:29 Glucose (Glucose Chew Tab) 4-8 Tablets 4 Tabl... UD PRN PO 11/05/17 03:30 12/05/17 03:29 Dextrose (Dextrose 50% 50ML Syringe) 25-50ML OF 50% DW IV FOR... UD PRN IV 11/05/17 03:30 12/05/17 03:29 Glucagon (Glucagon Inj) 1 mg UD PRN SQ 11/05/17 03:30 12/05/17 03:29 Allopurinol (Zyloprim Tab) 100 mg QAM PO 11/05/17 09:00 12/05/17 08:59 11/05/17 08:09 100 MG Allopurinol (Zyloprim Tab) 300 mg HS PO 11/05/17 21:00 12/05/17 20:59 Metoprolol Succinate (Toprol Xl Tab) 50 mg QAM PO 11/05/17 09:00 12/05/17 08:59 11/05/17 08:09 50 MG Pantoprazole Sodium (Protonix Tab) 40 mg DAILY PO 11/05/17 09:00 12/05/17 08:59 11/05/17 08:09 40 MG Zolpidem Tartrate (Ambien Tab) 5 mg HS PO 11/05/17 21:00 12/05/17 20:59 Enalapril Maleate (Vasotec Tab) 20 mg QPM PO 11/05/17 21:00 12/05/17 20:59 Insulin Glargine (Lantus Solostar Pen) 12 units QPM SC 11/05/17 21:00 12/05/17 20:59 Insulin Aspart (novoLOG ASPART) SLIDING SCALE G... ACHS SC 11/05/17 08:00 12/05/17 07:59 11/05/17 09:07 3 UNITS Albuterol/ Ipratropium (Duoneb) 3 ml Q4R PRN INH 11/05/17 04:15 12/05/17 04:14 Miscellaneous (Iv Fluids Completed) 1 ea PRN PRN N/A 11/05/17 05:45 11/05/18 05:44 Piperacillin Sod/ Tazobactam Sod 3.375 gm/Dextrose 115 ml @ 200 mls/hr Q6 IV 11/05/17 12:00 11/15/17 11:59 UNV Miscellaneous Information (Consult) 1 ea UD PRN N/A 11/05/17 10:30 12/05/17 10:29 UNV Piperacillin Sod/ Tazobactam Sod 3.375 gm/Dextrose 115 ml @ 230 mls/hr 1045 ONCE IV 11/05/17 10:45 11/05/17 11:14 Objective Physical Exam General Appearance: WD/WN, no apparent distress Eyes: normal inspection, EOMI Respiratory/Chest: lungs clear, normal breath sounds Cardiovascular: regular rate, rhythm, no gallop Abdomen: soft Extremities: no pedal edema Neurologic/Psychiatric: alert, normal mood/affect Skin: normal color, warm/dry Laboratory Results 11/04/17 18:44 Red Blood Count 5.05, Mean Corpuscular Volume 83.6, Mean Corpuscular Hemoglobin 28.3, Mean Corpuscular Hemoglobin Concent 33.9, Mean Platelet Volume 9.6, Neutrophils (%) (Auto) 80.3, Lymphocytes (%) (Auto) 10.2, Monocytes (%) (Auto) 6.9, Eosinophils (%) (Auto) 1.8, Basophils (%) (Auto) 0.2, Neutrophils # (Auto) 6.85, Lymphocytes # (Auto) 0.87, Monocytes # (Auto) 0.59, Eosinophils # (Auto) 0.15, Basophils # (Auto) 0.02 11/04/17 18:44 11/04/17 19:42 Test 11/04/17 18:44 11/04/17 20:29 11/05/17 08:18 White Blood Count 8.53 K/uL (4.8-10.8) Red Blood Count 5.05 M/uL (4.7-6.1) Hemoglobin 14.3 g/dL (14.0-18.0) Hematocrit 42.2 % (42-52) Mean Corpuscular Volume 83.6 fL (80-100) Mean Corpuscular Hemoglobin 28.3 pg (25-34) Mean Corpuscular Hemoglobin Concent 33.9 g/dl (32-36) Platelet Count 288 K/uL (130-400) Mean Platelet Volume 9.6 fL (7.4-10.4) Neutrophils (%) (Auto) 80.3 % Lymphocytes (%) (Auto) 10.2 % Monocytes (%) (Auto) 6.9 % Eosinophils (%) (Auto) 1.8 % Basophils (%) (Auto) 0.2 % Neutrophils # (Auto) 6.85 K/uL (1.4-6.5) Lymphocytes # (Auto) 0.87 K/uL (1.2-3.4) Monocytes # (Auto) 0.59 K/uL (0.11-0.59) Eosinophils # (Auto) 0.15 K/uL (0-0.5) Basophils # (Auto) 0.02 K/uL (0-0.2) RDW Standard Deviation 42.2 fL (36.4-46.3) RDW Coefficient of Variation 13.9 % (11.5-14.5) Immature Granulocyte % (Auto) 0.6 % Immature Granulocyte # (Auto) 0.05 K/uL (0.00-0.02) Anion Gap 7.0 mmol/L (3-11) Est Creatinine Clear Calc Drug Dose 159.1 ml/min Estimated GFR () 120.0 Estimated GFR (Non- 103.6 BUN/Creatinine Ratio 14.3 (10-20) Calcium Level 9.9 mg/dl (8.5-10.1) Total Bilirubin 0.4 mg/dl (0.2-1) Direct Bilirubin mg/dl (0-0.2) Aspartate Amino Transf (AST/SGOT) U/L (15-37) Alanine Aminotransferase (ALT/SGPT) 48 U/L (12-78) Alkaline Phosphatase 109 U/L (45-117) Total Protein 7.7 gm/dl (6.4-8.2) Albumin 2.9 gm/dl (3.4-5.0) Lipase 105 U/L (73-393) Urine Color YELLOW Urine Appearance CLEAR (CLEAR) Urine pH 5.0 (4.5-7.5) Urine Specific [place] > 1.045 (1.000-1.030) Urine Protein 1+ (NEG) Urine Glucose (UA) NEG (NEG) Urine Ketones TRACE (NEG) Urine Occult Blood NEG (NEG) Urine Nitrite NEG (NEG) Urine Bilirubin NEG (NEG) Urine Urobilinogen NEG (NEG) Urine Leukocyte Esterase NEG (NEG) Urine WBC (Auto) 1-5 /hpf (0-5) Urine RBC (Auto) 0-4 /hpf (0-4) Urine Hyaline Casts (Auto) 0 /lpf (0-5) Urine Epithelial Cells (Auto) 0-5 /lpf (0-5) Urine Bacteria (Auto) NEG (NEG) Bedside Glucose 211 mg/dl (70-99) Assessment and Plan 56-year-old male with past medical history of hypertension, diabetes type 2, coronary artery disease, asthma, status post gastric bypass, transitional cell cancer of the bladder, hyperlipidemia presented to the ER with acute appendicitis as visualized on CT. Reason for consult: management of diabetes and HTN. Acute appendicitis: -Appendectomy per general surgery - spoke with Dr. Faulkner - ordered Zosyn IV, cultures pending. Restarting diet. Hypertension: - Continue enalapril, metoprolol Diabetes type 2: - Home medications include Lantus 90 units, insulin sliding scale and metformin 850 mg 3 times a day - We will hold metformin and start him on insulin sliding scale. - Blood sugars will be reassessed and titrate Lantus - to restart diet today - will need to increase glargine dose tonight (was only given 12 last night) Coronary artery disease: Had cardiac catheterization with no stents - Continue metoprolol 50 mg every morning and enalapril - Does not take aspirin due to history of gastric bypass - Developed myalgias with statins and was recommended to take Fish oil supplements by cardiology Asthma: - DuoNeb when necessary Transitional cell cancer of bladder: Stable Full code DVT prophylaxis : SCDs Disposition: MedSur Resident Physician Supervision Note: I interviewed and examined the patient. Discussed with Dr. Bose and agree with findings and plan as documented in the note. Any exceptions or clarifications are listed here: None Documented By: Filippo Garza feeling better sugars noted eating more vitlas noted nad breathing unlabored no pallor or icterus DM2 on insulin - increase insulins since eating more but not yet back to baseline levels Resident Tracking Resident Involvement: Resident Care Provided Care Provided: Adult Hospital Medicine
[2017-11-05] MEDS ORDERED: PIPERACILL/TAZOBAC IV 3.375 GM in DEXTROSE 5% 100ML IV ONE (10:45)
[2017-11-05] MEDS ORDERED: PIPERACILL/TAZOBAC IV 3.375 GM in DEXTROSE 5% 100ML 100 ML IV SCH (16:00)
[2017-11-05] MEDS: PIPERACILL/TAZOBAC IV 4.5 GM in DEXTROSE 5% 100ML IV SCH (17:53)
[2017-11-05] MEDS: ENALAPRIL MALEATE 10 MG TAB PO SCH (20:42)
[2017-11-05] MEDS: ALLOPURINOL 300 MG TAB PO SCH (20:43)
[2017-11-05] MEDS: ZOLPIDEM TARTRATE 5 MG TAB PO SCH (22:13)
[2017-11-05] MEDS ORDERED: SODIUM CHLORIDE 0.9% 1000ML 1,000 ML IV PRN (23:30)
[2017-11-06] MEDS: SODIUM CHLORIDE 0.9% 1000ML 1,000 ML IV SCH ×2 (00:37→10:56)
[2017-11-06] MEDS: PIPERACILL/TAZOBAC IV 4.5 GM in DEXTROSE 5% 100ML IV SCH ×3 (02:27→17:51)
[2017-11-06 03:51] VITALS: BP 129/72; PULSE 75; TEMP 37.5; O2SAT 94
[2017-11-06 06:10] LABS: BASO % 0.4 %; BASO ABS # 0.04 K/uL (0-0.2); EOS % 1.4 %; EOS ABS # 0.16 K/uL (0-0.5); HEMATOCRIT 40.5 % (42-52); HEMOGLOBIN 13.7 g/dL (14.0-18.0); IG# 0.17 K/uL (0.00-0.02); LYMPH % 8.2 %; LYMPH ABS # 0.91 K/uL (1.2-3.4); MEAN CORPUSCULAR HEMOGLOBIN 28.4 pg (25-34); MEAN CORPUSCULAR HGB CONC 33.8 g/dl (32-36); MEAN PLATELET VOLUME 9.5 fL (7.4-10.4); MONO % 8.9 %; MONO ABS # 0.99 K/uL (0.11-0.59); NEUT % 79.6 %; NEUT ABS # 8.86 K/uL (1.4-6.5); PLATELET COUNT 307 K/uL (130-400); RED CELL DISTRIBUTION WIDTH CV 13.9 % (11.5-14.5); RED CELL DISTRIBUTION WIDTH SD 42.7 fL (36.4-46.3); WHITE BLOOD COUNT 11.13 K/uL (4.8-10.8)
[2017-11-06 06:44] LABS: CREATININE 1.49 mg/dl (0.60-1.40)
[2017-11-06] MEDS: HYDROmorphone HCL 0.5MG/ML 50 ML CASSETTE IV PRN ×3 (07:16→23:02)
[2017-11-06 07:32] VITALS: BP 115/67; PULSE 78; TEMP 37.2; O2SAT 97
[2017-11-06] MEDS ORDERED: SODIUM CHLORIDE 0.65% NA SOLN 45 ML (OCEAN) ONE (07:35)
[2017-11-06] MEDS ORDERED: SODIUM CHLORIDE 0.65% NA SOLN 45 ML (OCEAN) PRN (07:45)
[2017-11-06] MEDS ORDERED: NURSING DECISION MEDICATION ORDER SCH ×2 (07:45→23:15)
[2017-11-06] MEDS ORDERED: FLUTICASONE PROPIONATE NA SPR 16 GM BTL PRN (08:30)
--- NOTE | 2017-11-06 08:36 | Family Medicine Progress Note ---
Progress Note Date of Service Nov 06, 2017. Subjective Pt evaluation today including: conversation w/ patient, physical exam, chart review, lab review Pain: controlled PO Intake: adequate Voiding: no voiding problems Pt reports feeling well this morning. Only complaint is post nasal drip which causes him to cough, especially in the mornings which is painful to his incision site. States he normally takes a daily antihistamine. Eating well, voiding well, sleeping well. ROS otherwise unremarkable. Objective Physical Exam General Appearance: WD/WN, no apparent distress Eyes: normal inspection, EOMI Respiratory/Chest: lungs clear, normal breath sounds, no respiratory distress Cardiovascular: regular rate, rhythm, no gallop Abdomen: normal bowel sounds, soft, + pertinent finding (incision in RLQ dressing in tact, drain serosanguinous fluid) Skin: normal color, warm/dry Laboratory Results 11/06/17 05:41 Red Blood Count 4.82, Mean Corpuscular Volume 84.0, Mean Corpuscular Hemoglobin 28.4, Mean Corpuscular Hemoglobin Concent 33.8, Mean Platelet Volume 9.5, Neutrophils (%) (Auto) 79.6, Lymphocytes (%) (Auto) 8.2, Monocytes (%) (Auto) 8.9, Eosinophils (%) (Auto) 1.4, Basophils (%) (Auto) 0.4, Neutrophils # (Auto) 8.86, Lymphocytes # (Auto) 0.91, Monocytes # (Auto) 0.99, Eosinophils # (Auto) 0.16, Basophils # (Auto) 0.04 11/06/17 05:41 Test 11/05/17 20:40 11/06/17 05:41 Bedside Glucose 227 mg/dl (70-99) White Blood Count 11.13 K/uL (4.8-10.8) Red Blood Count 4.82 M/uL (4.7-6.1) Hemoglobin 13.7 g/dL (14.0-18.0) Hematocrit 40.5 % (42-52) Mean Corpuscular Volume 84.0 fL (80-100) Mean Corpuscular Hemoglobin 28.4 pg (25-34) Mean Corpuscular Hemoglobin Concent 33.8 g/dl (32-36) Platelet Count 307 K/uL (130-400) Mean Platelet Volume 9.5 fL (7.4-10.4) Neutrophils (%) (Auto) 79.6 % Lymphocytes (%) (Auto) 8.2 % Monocytes (%) (Auto) 8.9 % Eosinophils (%) (Auto) 1.4 % Basophils (%) (Auto) 0.4 % Neutrophils # (Auto) 8.86 K/uL (1.4-6.5) Lymphocytes # (Auto) 0.91 K/uL (1.2-3.4) Monocytes # (Auto) 0.99 K/uL (0.11-0.59) Eosinophils # (Auto) 0.16 K/uL (0-0.5) Basophils # (Auto) 0.04 K/uL (0-0.2) RDW Standard Deviation 42.7 fL (36.4-46.3) RDW Coefficient of Variation 13.9 % (11.5-14.5) Immature Granulocyte % (Auto) 1.5 % Immature Granulocyte # (Auto) 0.17 K/uL (0.00-0.02) Est Creatinine Clear Calc Drug Dose 76.9 ml/min Estimated GFR () 59.5 Estimated GFR (Non- 51.4 Assessment and Plan 56-year-old male with past medical history of hypertension, diabetes type 2, coronary artery disease, asthma, status post gastric bypass, transitional cell cancer of the bladder, hyperlipidemia presented to the ER with acute appendicitis as visualized on CT. Reason for consult: management of diabetes and HTN. Acute appendicitis: -Appendectomy per general surgery - spoke with Dr. Faulkner - ordered Zosyn IV, cultures pending. Pt tolerating diet. Post nasal drip, cough - ordered home med of Claritin, started flonase. Hypertension: - Continue enalapril, metoprolol Diabetes type 2: - Home medications include Lantus 90 units, insulin sliding scale and metformin 850 mg 3 times a day - We will hold metformin and start him on insulin sliding scale. - Blood sugars will be reassessed and titrate Lantus given 50 u last night. Will titrate as needed today. Coronary artery disease: Had cardiac catheterization with no stents - Continue metoprolol 50 mg every morning and enalapril - Does not take aspirin due to history of gastric bypass - Developed myalgias with statins and was recommended to take Fish oil supplements by cardiology Asthma: - DuoNeb when necessary Transitional cell cancer of bladder: Stable Full code DVT prophylaxis : SCDs [facility] Resident Physician Supervision Note: I interviewed and examined the patient. Discussed with Dr. Bose and agree with findings and plan as documented in the note. Any exceptions or clarifications are listed here: None Documented By: Filippo haas noted, feelign better eating more vitals noted nad breathing unlabored no pallor or icterus DM - eating more - increase insulins. tighten carb coverage Continued [facility] stay due to: multiple IV medications needed Resident Tracking Resident Involvement: Resident Care Provided Care Provided: Adult Hospital Medicine
[2017-11-06] MEDS: INSULIN ASPART 100 UNITS/ML 3 ML PEN SC SCH ×4 (09:20→21:06)
[2017-11-06] MEDS: METOPROLOL SUCC 50MG EXT REL TAB PO SCH (09:23)
[2017-11-06] MEDS: ALLOPURINOL 100 MG TAB PO SCH (09:23)
[2017-11-06] MEDS: PANTOprazole SOD 40 MG TAB PO SCH (09:24)
[2017-11-06] MEDS: LORATADINE 10 MG TAB PO SCH (10:43)
--- NOTE | 2017-11-06 10:59 | Surgery Progress Note ---
Surgery Progress Note Date of Service Nov 06, 2017. Subjective Post OP Day: 1 + feeling well, + pain controlled, + diet (tolerated regular diet), No nausea, No vomiting Objective Vital Signs: Date Time Temp Pulse Resp B/P (MAP) Pulse Ox O2 Delivery O2 Flow Rate FiO2 11/06/17 08:12 Room Air 11/06/17 07:32 37.2 78 18 115/67 (83) 97 Room Air 11/06/17 03:51 37.5 75 18 129/72 (91) 94 CPAP 11/06/17 00:30 CPAP 11/05/17 22:55 37.7 91 18 125/71 (89) 91 Room Air 11/05/17 20:40 88 132/77 (95) 11/05/17 19:34 37.1 88 18 155/85 (108) 92 Room Air 11/05/17 19:30 Room Air 11/05/17 15:52 38.1 82 20 143/80 (101) 94 Room Air 11/05/17 11:40 37.5 87 18 134/84 (101) 93 Nasal Cannula Physical Exam: ASMITA drainage (120 cc yesterday, 10 cc last shift, serosanguinous) Abdomen: normal bowel sounds, non distended, soft, + tenderness (incisional only), + pertinent finding (skin pink around larger incision) Incision(s): clean, dry, intact, no drainage Laboratory Results: Results Past 24 Hours Test 11/05/17 12:04 11/05/17 17:11 11/05/17 20:40 11/06/17 05:41 Range/Units Bedside Glucose 217 210 227 70-99 mg/dl White Blood Count 11.13 4.8-10.8 K/uL Red Blood Count 4.82 4.7-6.1 M/uL Hemoglobin 13.7 14.0-18.0 g/dL Hematocrit 40.5 42-52 % Mean Corpuscular Volume 84.0 80-100 fL Mean Corpuscular Hemoglobin 28.4 25-34 pg Mean Corpuscular Hemoglobin Concent 33.8 32-36 g/dl Platelet Count 307 130-400 K/uL Mean Platelet Volume 9.5 7.4-10.4 fL Neutrophils (%) (Auto) 79.6 % Lymphocytes (%) (Auto) 8.2 % Monocytes (%) (Auto) 8.9 % Eosinophils (%) (Auto) 1.4 % Basophils (%) (Auto) 0.4 % Neutrophils # (Auto) 8.86 1.4-6.5 K/uL Lymphocytes # (Auto) 0.91 1.2-3.4 K/uL Monocytes # (Auto) 0.99 0.11-0.59 K/uL Eosinophils # (Auto) 0.16 0-0.5 K/uL Basophils # (Auto) 0.04 0-0.2 K/uL RDW Standard Deviation 42.7 36.4-46.3 fL RDW Coefficient of Variation 13.9 11.5-14.5 % Immature Granulocyte % (Auto) 1.5 % Immature Granulocyte # (Auto) 0.17 0.00-0.02 K/uL Creatinine 1.49 0.60-1.40 mg/dl Est Creatinine Clear Calc Drug Dose 76.9 ml/min Estimated GFR () 59.5 Estimated GFR (Non- 51.4 Test 11/06/17 08:11 Range/Units Bedside Glucose 188 70-99 mg/dl Assessment & Plan S/P open appendectomy Stable Continue diet Cultures of abdominal fluid without growth so far Continue IV antibiotics Continue to monitor incision Ambulate
[2017-11-06 13:09] VITALS: BP 142/81; PULSE 79; TEMP 37; O2SAT 98
[2017-11-06 14:51] VITALS: BP 135/78; PULSE 89; TEMP 37.2; O2SAT 97
[2017-11-06 15:45] VITALS: O2SAT 97
[2017-11-06] MEDS: ENALAPRIL MALEATE 10 MG TAB PO SCH (20:59)
[2017-11-06] MEDS: ALLOPURINOL 300 MG TAB PO SCH (20:59)
[2017-11-06] MEDS ORDERED: INSULIN GLARGINE SOLOSTAR 100 UNITS/ML 3 ML PEN SC SCH (21:00)
[2017-11-06] MEDS: ZOLPIDEM TARTRATE 5 MG TAB PO SCH (22:31)
[2017-11-06 23:20] VITALS: BP 121/73; PULSE 84; TEMP 37.3; O2SAT 94
[2017-11-07] MEDS: SODIUM CHLORIDE 0.9% 1000ML 1,000 ML IV SCH ×2 (02:18→12:38)
[2017-11-07] MEDS: PIPERACILL/TAZOBAC IV 4.5 GM in DEXTROSE 5% 100ML IV SCH ×3 (02:18→18:00)
[2017-11-07 04:00] VITALS: BP 149/81; PULSE 83; TEMP 36.9; O2SAT 99
--- NOTE | 2017-11-07 06:40 | Family Medicine Progress Note ---
Progress Note Date of Service Nov 07, 2017. Subjective Pt evaluation today including: conversation w/ patient, physical exam, chart review, lab review Pain: Mild PO Intake: good Voiding: no voiding problems Patient with a persistent cough overnight due to post nasal drip, this made it difficult for him to sleep Still having mild abdominal pain at incision site, redness around waldo, had a seroma removed by surgeon at bedside Constitutional: No fever, No chills, No sweats Respiratory: + cough, No sputum, No shortness of breath, No hemoptysis Cardiovascular: No chest pain, No edema, No palpitations Abdomen: + pain, + diarrhea, No nausea, No vomiting, No constipation Male : No dysuria, No urinary frequency Skin: No rash, No itch Medications Current Inpatient Medications Medications (Trade) Dose Ordered Sig/Clarence Route Start Time Stop Time Status Last Admin Dose Admin Ondansetron HCl (Zofran Inj) 4 mg Q6H PRN IV 11/05/17 01:00 12/05/17 00:59 Sodium Chloride 1,000 ml @ 50 mls/hr Q20H IV 11/05/17 04:00 12/05/17 03:59 11/07/17 12:38 50 MLS/HR Glucose (Glucose 40% Gel) 15-30 GRAMS 15 GRAMS... UD PRN PO 11/05/17 03:30 12/05/17 03:29 Glucose (Glucose Chew Tab) 4-8 Tablets 4 Tabl... UD PRN PO 11/05/17 03:30 12/05/17 03:29 Dextrose (Dextrose 50% 50ML Syringe) 25-50ML OF 50% DW IV FOR... UD PRN IV 11/05/17 03:30 12/05/17 03:29 Glucagon (Glucagon Inj) 1 mg UD PRN SQ 11/05/17 03:30 12/05/17 03:29 Allopurinol (Zyloprim Tab) 100 mg QAM PO 11/05/17 09:00 12/05/17 08:59 11/07/17 07:08 100 MG Allopurinol (Zyloprim Tab) 300 mg HS PO 11/05/17 21:00 12/05/17 20:59 11/06/17 20:59 300 MG Metoprolol Succinate (Toprol Xl Tab) 50 mg QAM PO 11/05/17 09:00 2/26/18 08:59 11/07/17 07:07 50 MG Pantoprazole Sodium (Protonix Tab) 40 mg DAILY PO 11/05/17 09:00 12/05/17 08:59 11/07/17 07:07 40 MG Zolpidem Tartrate (Ambien Tab) 5 mg HS PO 11/05/17 21:00 12/05/17 20:59 11/06/17 22:31 5 MG Enalapril Maleate (Vasotec Tab) 20 mg QPM PO 11/05/17 21:00 12/05/17 20:59 11/06/17 20:59 20 MG Insulin Aspart (novoLOG ASPART) SLIDING SCALE G... ACHS SC 11/05/17 08:00 12/05/17 07:59 11/07/17 12:39 14 UNITS Albuterol/ Ipratropium (Duoneb) 3 ml Q4R PRN INH 11/05/17 04:15 12/05/17 04:14 Miscellaneous (Iv Fluids Completed) 1 ea PRN PRN N/A 11/05/17 05:45 11/05/18 05:44 Miscellaneous Information (Consult) 1 ea UD PRN N/A 11/05/17 10:30 12/05/17 10:29 Piperacillin Sod/ Tazobactam Sod 4.5 gm/Dextrose 120 ml @ 30 mls/hr Q8H IV 11/05/17 18:00 11/15/17 09:59 11/07/17 09:45 30 MLS/HR Sodium Chloride ([place] Nasal [place]) 1 sprays PRN PRN NA 11/06/17 07:45 12/06/17 07:44 Loratadine (Claritin Tab) 10 mg QAM PO 11/06/17 09:00 12/06/17 08:59 11/07/17 07:07 10 MG Fluticasone Propionate (Flonase Nasal [place]) 2 sprays DAILY PRN NA 11/06/17 08:30 12/06/17 08:29 Oxycodone/ Acetaminophen (Percocet 5-325mg Tab) 1 tab Q4H PRN PO 11/07/17 09:45 11/21/17 09:44 Oxycodone/ Acetaminophen (Percocet 5-325mg Tab) 2 tab Q4H PRN PO 11/07/17 09:45 11/21/17 09:44 11/07/17 12:42 2 TAB Morphine Sulfate (MoRPHine SULFATE INJ) 1 mg Q2H PRN IV 11/07/17 09:45 11/21/17 09:44 Morphine Sulfate (MoRPHine SULFATE INJ) 2 mg Q2H PRN IV 11/07/17 09:45 11/21/17 09:44 Benzonatate (Tessalon [place] Cap) 100 mg Q8H PRN PO 11/07/17 18:45 12/07/17 18:44 Insulin Glargine (Lantus Solostar Pen) 90 units HS SC 11/07/17 21:00 12/05/17 20:59 Objective Vital Signs Date Time Temp Pulse Resp B/P (MAP) Pulse Ox O2 Delivery O2 Flow Rate FiO2 11/07/17 07:32 37.0 79 18 135/75 (95) 92 Room Air 11/07/17 07:15 Room Air CPAP 11/07/17 04:00 36.9 83 18 149/81 (103) 99 Room Air 11/07/17 00:00 Room Air 11/06/17 23:20 37.3 84 18 121/73 (89) 94 CPAP 11/06/17 15:45 97 Room Air 11/06/17 14:51 37.2 89 18 135/78 (97) 97 Room Air Physical Exam General Appearance: WD/WN, no apparent distress ENT: hearing grossly normal, pharynx normal Neck: no carotid bruits, trachea midline Respiratory/Chest: lungs clear, no respiratory distress, no accessory muscle use Cardiovascular: regular rate, rhythm, no edema, no murmur Abdomen: normal bowel sounds, soft, + distended, + pertinent finding (waldo in place in lower abdomen with mild surrounding erythema, mildly tender to palpation) Extremities: normal range of motion, non-tender, no calf tenderness Laboratory Results Results Past 24 Hours Test 11/06/17 16:54 11/06/17 20:54 11/07/17 06:30 11/07/17 12:20 Range/Units Bedside Glucose 345 225 272 70-99 mg/dl White Blood Count 8.19 4.8-10.8 K/uL Red Blood Count 4.39 4.7-6.1 M/uL Hemoglobin 12.2 14.0-18.0 g/dL Hematocrit 36.7 42-52 % Mean Corpuscular Volume 83.6 80-100 fL Mean Corpuscular Hemoglobin 27.8 25-34 pg Mean Corpuscular Hemoglobin Concent 33.2 32-36 g/dl Platelet Count 319 130-400 K/uL Mean Platelet Volume 9.5 7.4-10.4 fL Neutrophils (%) (Auto) 74.1 % Lymphocytes (%) (Auto) 12.1 % Monocytes (%) (Auto) 8.5 % Eosinophils (%) (Auto) 2.7 % Basophils (%) (Auto) 0.4 % Neutrophils # (Auto) 6.07 1.4-6.5 K/uL Lymphocytes # (Auto) 0.99 1.2-3.4 K/uL Monocytes # (Auto) 0.70 0.11-0.59 K/uL Eosinophils # (Auto) 0.22 0-0.5 K/uL Basophils # (Auto) 0.03 0-0.2 K/uL RDW Standard Deviation 42.6 36.4-46.3 fL RDW Coefficient of Variation 13.9 11.5-14.5 % Immature Granulocyte % (Auto) 2.2 % Immature Granulocyte # (Auto) 0.18 0.00-0.02 K/uL Creatinine 1.14 0.60-1.40 mg/dl Est Creatinine Clear Calc Drug Dose 100.5 ml/min Estimated GFR () 82.3 Estimated GFR (Non- 71.0 Assessment and Plan 56-year-old male with past medical history of hypertension, diabetes type 2, coronary artery disease, asthma, status post gastric bypass, transitional cell cancer of the bladder, hyperlipidemia presented to the ER with acute appendicitis as visualized on CT. Reason for consult: management of diabetes and HTN. Currently POD #2 Acute appendicitis: - Appendectomy per general surgery -spoke with Dr. Faulkner - ordered Zosyn IV, cultures pending. Pt tolerating diet. Post nasal drip, cough - ordered home med of Claritin, started flonase. - stated tessalon pearles which have helped cough, continue TID Hypertension: - Continue enalapril, metoprolol Diabetes type 2: - Home medications include Lantus 90 units, insulin sliding scale and metformin 850 mg 3 times a day - Blood sugars have been 218-->345 --> 225. 20+ insulin coverage this AM - Will increase lantus dose to 90 qhs and tighten sliding scale coverage Coronary artery disease: - Had cardiac catheterization with no stents - Continue metoprolol 50 mg every morning and enalapril - Does not take aspirin due to history of gastric bypass - Developed myalgias with statins and was recommended to take Fish oil supplements by cardiology Asthma: - DuoNeb when necessary Transitional cell cancer of bladder: Stable Full code DVT prophylaxis : SCDs Disposition: MedSurg Continued [facility] stay due to: multiple IV medications needed Discharge planning: home History Resident Physician Supervision Note: I was present with Dr. Yoon during the history and exam. I discussed the case with the resident and agree with the findings and plan as documented in the note. Any exceptions or clarifications are listed here. Pt reports gradual improvement of abdominal discomfort which worsens with cough which is nonproductive and worse on laying flat with congestion and PND General Appearance: no apparent distress, obese Respiratory: chest non-tender, lungs clear, normal breath sounds, no respiratory distress Cardiovascular: normal peripheral pulses, regular rate, rhythm, no murmur Gastrointestinal: normal bowel sounds, no organomegaly, distended, other ( incisional site with mild surrounding erythema, bandage of the left abd CDI) Assessment/Plan 56 y/o male h/o HTN, DMII, HLD, CAD, asthma, h/o gastric bypass, transitional cell Ca of bladder presents w/ acute appendicitis, consulted for medical mgmt Acute appendicitis - continue Zosyn, management per primary team Acute URI - symptomatic therapy with improvement HTN - stable - continue enalapril, metoprolol DMII - glargine at 90U this evening with ISS, monitor Asthma - albuterol PRN
[2017-11-07] MEDS: HYDROmorphone HCL 0.5MG/ML 50 ML CASSETTE IV PRN (06:45)
[2017-11-07] MEDS: LORATADINE 10 MG TAB PO SCH (07:07)
[2017-11-07] MEDS: METOPROLOL SUCC 50MG EXT REL TAB PO SCH (07:07)
[2017-11-07] MEDS: PANTOprazole SOD 40 MG TAB PO SCH (07:07)
[2017-11-07] MEDS: ALLOPURINOL 100 MG TAB PO SCH (07:08)
[2017-11-07 07:20] LABS: BASO % 0.4 %; BASO ABS # 0.03 K/uL (0-0.2); EOS % 2.7 %; EOS ABS # 0.22 K/uL (0-0.5); HEMATOCRIT 36.7 % (42-52); HEMOGLOBIN 12.2 g/dL (14.0-18.0); IG# 0.18 K/uL (0.00-0.02); LYMPH % 12.1 %; LYMPH ABS # 0.99 K/uL (1.2-3.4); MEAN CELL VOLUME 83.6 fL (80-100); MEAN CORPUSCULAR HEMOGLOBIN 27.8 pg (25-34); MEAN CORPUSCULAR HGB CONC 33.2 g/dl (32-36); MEAN PLATELET VOLUME 9.5 fL (7.4-10.4); MONO % 8.5 %; NEUT % 74.1 %; NEUT ABS # 6.07 K/uL (1.4-6.5); PLATELET COUNT 319 K/uL (130-400); RED CELL DISTRIBUTION WIDTH CV 13.9 % (11.5-14.5); RED CELL DISTRIBUTION WIDTH SD 42.6 fL (36.4-46.3); WHITE BLOOD COUNT 8.19 K/uL (4.8-10.8)
[2017-11-07 07:32] VITALS: BP 135/75; PULSE 79; TEMP 37; O2SAT 92
[2017-11-07 07:56] LABS: CREATININE 1.14 mg/dl (0.60-1.40)
[2017-11-07] MEDS ORDERED: BENZONATATE 100MG CAP PO ONE ×2 (08:45→13:45)
[2017-11-07] MEDS: INSULIN ASPART 100 UNITS/ML 3 ML PEN SC SCH ×4 (08:55→21:13)
[2017-11-07] MEDS ORDERED: MoRPHine SULFATE 2 MG/ML CARP IV PRN ×2 (09:45)
--- NOTE | 2017-11-07 09:49 | Surgery Progress Note ---
Surgery Progress Note Date of Service Nov 07, 2017. Subjective + feeling well, + diet (tolerating regular diet), No nausea, No vomiting Objective Vital Signs: Date Time Temp Pulse Resp B/P (MAP) Pulse Ox O2 Delivery O2 Flow Rate FiO2 11/07/17 07:32 37.0 79 18 135/75 (95) 92 Room Air 11/07/17 07:15 Room Air CPAP 11/07/17 04:00 36.9 83 18 149/81 (103) 99 Room Air 11/07/17 00:00 Room Air 11/06/17 23:20 37.3 84 18 121/73 (89) 94 CPAP 11/06/17 15:45 97 Room Air 11/06/17 14:51 37.2 89 18 135/78 (97) 97 Room Air 11/06/17 13:09 37.0 79 14 142/81 (101) 98 Room Air Physical Exam: ASMITA drainage (18 cc yesterday, 5 cc last shift) Abdomen: normal bowel sounds, non distended, soft, + pertinent finding (area of redness increased in size) Laboratory Results: Results Past 24 Hours Test 11/06/17 12:07 11/06/17 16:54 11/06/17 20:54 11/07/17 06:30 Range/Units Bedside Glucose 218 345 225 70-99 mg/dl White Blood Count 8.19 4.8-10.8 K/uL Red Blood Count 4.39 4.7-6.1 M/uL Hemoglobin 12.2 14.0-18.0 g/dL Hematocrit 36.7 42-52 % Mean Corpuscular Volume 83.6 80-100 fL Mean Corpuscular Hemoglobin 27.8 25-34 pg Mean Corpuscular Hemoglobin Concent 33.2 32-36 g/dl Platelet Count 319 130-400 K/uL Mean Platelet Volume 9.5 7.4-10.4 fL Neutrophils (%) (Auto) 74.1 % Lymphocytes (%) (Auto) 12.1 % Monocytes (%) (Auto) 8.5 % Eosinophils (%) (Auto) 2.7 % Basophils (%) (Auto) 0.4 % Neutrophils # (Auto) 6.07 1.4-6.5 K/uL Lymphocytes # (Auto) 0.99 1.2-3.4 K/uL Monocytes # (Auto) 0.70 0.11-0.59 K/uL Eosinophils # (Auto) 0.22 0-0.5 K/uL Basophils # (Auto) 0.03 0-0.2 K/uL RDW Standard Deviation 42.6 36.4-46.3 fL RDW Coefficient of Variation 13.9 11.5-14.5 % Immature Granulocyte % (Auto) 2.2 % Immature Granulocyte # (Auto) 0.18 0.00-0.02 K/uL Creatinine 1.14 0.60-1.40 mg/dl Est Creatinine Clear Calc Drug Dose 100.5 ml/min Estimated GFR () 82.3 Estimated GFR (Non- 71.0 Assessment & Plan S/P open appendectomy Stable Continue diet Cultures of abdominal fluid without growth so far Area of redness increased, center of incision opened, seroma present, no purulent material Change analgesia to PO Creatinine decreased Would keep here today to monitor incision
[2017-11-07] MEDS: OXYCODONE/ACETAMINOPHEN 5-325 TAB PO PRN ×3 (12:42→22:41)
[2017-11-07 15:26] VITALS: BP 143/74; PULSE 79; TEMP 37.2; O2SAT 98
[2017-11-07 15:35] VITALS: O2SAT 98
[2017-11-07] MEDS: BENZONATATE 100MG CAP PO PRN (17:03)
[2017-11-07 21:00] VITALS: BP 154/74; PULSE 75
[2017-11-07] MEDS ORDERED: INSULIN GLARGINE SOLOSTAR 100 UNITS/ML 3 ML PEN SC SCH (21:00)
[2017-11-07] MEDS: ENALAPRIL MALEATE 10 MG TAB PO SCH (21:07)
[2017-11-07] MEDS: ALLOPURINOL 300 MG TAB PO SCH (21:08)
[2017-11-07] MEDS: ZOLPIDEM TARTRATE 5 MG TAB PO SCH (21:10)
[2017-11-07 23:00] VITALS: BP 149/77; PULSE 76; TEMP 37.2; O2SAT 96
[2017-11-08] MEDS: INSULIN ASPART 100 UNITS/ML 3 ML PEN SC SCH ×4 (00:28→13:02)
[2017-11-08] MEDS: PIPERACILL/TAZOBAC IV 4.5 GM in DEXTROSE 5% 100ML IV SCH ×2 (01:50→09:25)
[2017-11-08] MEDS: OXYCODONE/ACETAMINOPHEN 5-325 TAB PO PRN ×3 (03:49→13:08)
[2017-11-08] MEDS: SODIUM CHLORIDE 0.9% 1000ML 1,000 ML IV SCH (06:05)
[2017-11-08 07:15] VITALS: BP 119/70; PULSE 66; TEMP 37; O2SAT 96
[2017-11-08 07:38] LABS: HEMATOCRIT 37.3 % (42-52); HEMOGLOBIN 12.6 g/dL (14.0-18.0); MEAN CELL VOLUME 85.2 fL (80-100); MEAN CORPUSCULAR HEMOGLOBIN 28.8 pg (25-34); MEAN CORPUSCULAR HGB CONC 33.8 g/dl (32-36); MEAN PLATELET VOLUME 9.7 fL (7.4-10.4); PLATELET COUNT 382 K/uL (130-400); RED CELL DISTRIBUTION WIDTH SD 43.5 fL (36.4-46.3); WHITE BLOOD COUNT 8.46 K/uL (4.8-10.8)
[2017-11-08] MEDS: BENZONATATE 100MG CAP PO PRN (07:47)
[2017-11-08 08:13] LABS: CREATININE 1.12 mg/dl (0.60-1.40); POTASSIUM 4.4 mmol/L (3.5-5.1)
[2017-11-08] MEDS: PANTOprazole SOD 40 MG TAB PO SCH (08:55)
[2017-11-08] MEDS: METOPROLOL SUCC 50MG EXT REL TAB PO SCH (08:55)
[2017-11-08] MEDS: ALLOPURINOL 100 MG TAB PO SCH (08:55)
[2017-11-08] MEDS: LORATADINE 10 MG TAB PO SCH (08:55)
[2017-11-08] MEDS ORDERED: AMOX875T PO (09:02)
[2017-11-08] MEDS ORDERED: OXYC-57 PO (09:02)
--- NOTE | 2017-11-08 09:06 | Discharge Instructions ---
Discharge Instructions Date of Service Nov 08, 2017. Admission Reason for Admission: Acute Appendicitis Discharge Discharge Diagnosis / Problem: same Discharge Goals Goal(s): Decrease discomfort, Improve function Activity Recommendations Activity Limitations: as noted below No heavy lifting over 10 pounds for 6 weeks No strenuous activity until cleared by surgeon No submerging incisions underwater for 2 weeks or until cleared to do so (no bathing, swimming, or hot tubs) No driving while taking narcotic pain medication or until you are pain free . Instructions / Follow-Up Instructions / Follow-Up You may shower in 24 hours. Gently clean incisions with soap and water. Keep large incision covered with gauze and change daily or as needed to keep clean and dry. You may want to cover smaller incision as the waldo can attach to clothing Walking and light activity is encouraged. You will be given prescription for narcotic pain medication as needed for moderate to severe pain. This medication may make you drowsy. For mild pain you may take Ibuprofen. While you are taking Percocet, do not take Tylenol as it already has Tylenol in it. Instead substitute with Ibuprofen. If you no longer require Percocet you may take extra strength Tylenol. Finish entire course of antibiotics as prescribed Follow-up in surgical office in 1 week, please call office at [phone] to make an appointment Current Hospital Diet Patient's current hospital diet: Diabetes Type 2 Diet Discharge Diet Recommended Diet: Regular Diet Procedures Procedures Performed: Laparoscopic Appendectomy converted to Open Appendectomy Pending Studies Studies pending at discharge: yes List of pending studies: Appendix pathology Final culture results Both will be reviewed at follow up visit Laboratory Results Hemoglobin A1c Test 10/14/17 10:13 Range/Units Estimated Average Glucose 169 mg/dl Hemoglobin A1c 7.5 H 4.5-5.6 % Lipid Panel Test 10/14/17 10:13 Range/Units Triglycerides Level 228 H 0-150 mg/dl Cholesterol Level 158 0-200 mg/dl HDL Cholesterol 35 mg/dl Cholesterol/HDL Ratio 4.5 LDL Cholesterol, Calculated 77 mg/dl Medical Emergencies . Who to Call and When: Medical Emergencies: If at any time you feel your situation is an emergency, please call 911 immediately. . Non-Emergent Contact Non-Emergency issues call your: Primary Care Provider, Surgeon Call Non-Emergent contact if: you have a fever, temperature is above 101, your pain is not controlled, your pain is worsening, your pain is unusual for you, wound has increased drainage, wound has increased redness, wound has increased pain . "Provider Documentation" section prepared by Gilda Whitman. . VTE Core Measure Inpt VTE Proph given/why not?: SCD's [place] Drug Monitoring Program Search Results: patient reviewed within database, no issues identified
--- NOTE | 2017-11-08 11:04 | Surgery Progress Note ---
Surgery Progress Note Date of Service Nov 08, 2017. Subjective Post OP Day: 3 + feeling well, + complaints (cough still present with post nasal drip), + pain controlled, + diet, No chest pain, No SOB, No nausea, No vomiting Objective Vital Signs: Date Time Temp Pulse Resp B/P (MAP) Pulse Ox O2 Delivery O2 Flow Rate FiO2 11/08/17 07:50 Room Air 11/08/17 07:15 37.0 66 16 119/70 (86) 96 CPAP 11/08/17 00:21 CPAP 11/07/17 23:00 37.2 76 18 149/77 (101) 96 CPAP 11/07/17 21:00 75 154/74 (100) 11/07/17 15:35 98 Room Air 11/07/17 15:26 37.2 79 18 143/74 (97) 98 CPAP Physical Exam: ASMITA drainage (serous, scant) General Appearance: no apparent distress, + obese Head: normocephalic, atraumatic Neck: trachea midline Respiratory/Chest: no respiratory distress, no accessory muscle use Abdomen: non distended, soft, no organomegaly, no pulsatile mass, + tenderness (at incision sites, appropriate post op, no guarding or rebound), + pertinent finding (waldo present at incision sites) Incision(s): clean, dry, intact, erythema (there is erythema surrounding incisions, improved compared to yesterday at RLQ incision, still erythema but mostly irritation, no induration or fluctuance, serous drainge on dressing) Laboratory Results: Results Past 24 Hours Test 11/07/17 12:20 11/07/17 17:20 11/07/17 20:19 11/08/17 00:23 Range/Units Bedside Glucose 272 249 316 180 70-99 mg/dl Test 11/08/17 04:10 11/08/17 06:48 11/08/17 08:08 Range/Units Bedside Glucose 177 165 70-99 mg/dl White Blood Count 8.46 4.8-10.8 K/uL Red Blood Count 4.38 4.7-6.1 M/uL Hemoglobin 12.6 14.0-18.0 g/dL Hematocrit 37.3 42-52 % Mean Corpuscular Volume 85.2 80-100 fL Mean Corpuscular Hemoglobin 28.8 25-34 pg Mean Corpuscular Hemoglobin Concent 33.8 32-36 g/dl RDW Standard Deviation 43.5 36.4-46.3 fL RDW Coefficient of Variation 14.0 11.5-14.5 % Platelet Count 382 130-400 K/uL Mean Platelet Volume 9.7 7.4-10.4 fL Sodium Level 136 136-145 mmol/L Potassium Level 4.4 3.5-5.1 mmol/L Chloride Level 103 98-107 mmol/L Carbon Dioxide Level 27 21-32 mmol/L Anion Gap 6.0 3-11 mmol/L Blood Urea Nitrogen 16 7-18 mg/dl Creatinine 1.12 0.60-1.40 mg/dl Est Creatinine Clear Calc Drug Dose 102.3 ml/min Estimated GFR () 84.1 Estimated GFR (Non- 72.5 BUN/Creatinine Ratio 14.4 10-20 Random Glucose 162 70-99 mg/dl Calcium Level 9.0 8.5-10.1 mg/dl Chemistry Specimen Hemolysis Assessment & Plan POD # 3 s/p laparoscopic converted to open appendectomy - vitals stable, afebrile, leukocytosis resolved - wound culture still preliminary however no growth to date - RLQ incision with mild erythema, no induration, fluctuance, serous drainage. - Scant ASMITA drain output, serous Plan: Discharge home today Will be sent home with Rx for Percocet as needed for pain and 10 day course of PO Augmentin Discharge instructions reviewed Follow-up in office in 1 week for staple removal and follow-up Discontinue ASMITA drain prior to discharge Discussed patient with Dr. Faulkner who agrees with above.
[2017-11-08 11:23] VITALS: BP 119/70; PULSE 66; TEMP 37; O2SAT 96
[2017-11-08] MEDS ORDERED: BENZ100C7 PO (11:54)
--- NOTE | 2017-11-08 11:58 | Discharge Instructions ---
Discharge Instructions Date of Service Nov 08, 2017. Admission Reason for Admission: Acute Appendicitis Discharge Discharge Diagnosis / Problem: Appendicitis Discharge Goals Goal(s): Improve disease control, Learn about illness, Therapeutic intervention , Prevent Disease Progression Activity Recommendations Activity Limitations: per Instructions/Follow-up section . Instructions / Follow-Up Instructions / Follow-Up Appendicitis- please follow instructions per the primary team Diabetes - continue taking your lantus 90 units at night and metformin 3 times daily. Check your blood sugars regularly. before meals and 2 hours after meals and first thing in the morning. Follow up with your PCP for further management HTN - continue your home blood pressure regimen. check your blood pressure regularly at home in a quiet room. You would benefit from buying a blood pressure cuff if you don't already have one. Please follow up with your PCP for management of your blood pressure Current Hospital Diet Patient's current hospital diet: Diabetes Type 2 Diet Discharge Diet Recommended Diet: AHA Diet (Heart Healthy), Diabetes Type 2 Diet Procedures Procedures Performed: Laparoscopic Appendectomy converted to Open Appendectomy Pending Studies Studies pending at discharge: no Laboratory Results Hemoglobin A1c Test 10/14/17 10:13 Range/Units Estimated Average Glucose 169 mg/dl Hemoglobin A1c 7.5 H 4.5-5.6 % Lipid Panel Test 10/14/17 10:13 Range/Units Triglycerides Level 228 H 0-150 mg/dl Cholesterol Level 158 0-200 mg/dl HDL Cholesterol 35 mg/dl Cholesterol/HDL Ratio 4.5 LDL Cholesterol, Calculated 77 mg/dl Medical Emergencies . Who to Call and When: Medical Emergencies: If at any time you feel your situation is an emergency, please call 911 immediately. . Non-Emergent Contact Non-Emergency issues call your: Primary Care Provider, Surgeon . . "Provider Documentation" section prepared by Bartolome Yoon. . VTE Core Measure Inpt VTE Proph given/why not?: SCD's
--- NOTE | 2017-11-08 12:04 | Family Medicine Progress Note ---
Progress Note Date of Service Nov 08, 2017. Subjective Pt evaluation today including: conversation w/ patient, physical exam, chart review, lab review, conversation w/ dairy consultant, review of inpatient medication list Pain: none PO Intake: good Voiding: no voiding problems Patient feeling well and without any new complaints overnight He did have 2 episodes of diarrhea overnight, otherwise feels well and would like to go home today Constitutional: No fever, No chills Respiratory: + cough, No sputum, No wheezing, No shortness of breath, No dyspnea on exertion Cardiovascular: No chest pain, No edema, No palpitations Abdomen: + diarrhea, No pain, No nausea, No vomiting, No GI bleeding Musculoskeletal: No joint pain, No muscle pain, No calf pain Male : No dysuria, No hematuria Medications Current Inpatient Medications Medications (Trade) Dose Ordered Sig/Clarence Route Start Time Stop Time Status Last Admin Dose Admin Ondansetron HCl (Zofran Inj) 4 mg Q6H PRN IV 11/05/17 01:00 12/05/17 00:59 Sodium Chloride 1,000 ml @ 50 mls/hr Q20H IV 11/05/17 04:00 12/05/17 03:59 11/08/17 06:05 50 MLS/HR Glucose (Glucose 40% Gel) 15-30 GRAMS 15 GRAMS... UD PRN PO 11/05/17 03:30 12/05/17 03:29 Glucose (Glucose Chew Tab) 4-8 Tablets 4 Tabl... UD PRN PO 11/05/17 03:30 12/05/17 03:29 Dextrose (Dextrose 50% 50ML Syringe) 25-50ML OF 50% DW IV FOR... UD PRN IV 11/05/17 03:30 12/05/17 03:29 Glucagon (Glucagon Inj) 1 mg UD PRN SQ 11/05/17 03:30 12/05/17 03:29 Allopurinol (Zyloprim Tab) 100 mg QAM PO 11/05/17 09:00 12/05/17 08:59 11/08/17 08:55 100 MG Allopurinol (Zyloprim Tab) 300 mg HS PO 11/05/17 21:00 12/05/17 20:59 11/07/17 21:08 300 MG Metoprolol Succinate (Toprol Xl Tab) 50 mg QAM PO 11/05/17 09:00 2/26/18 08:59 11/08/17 08:55 50 MG Pantoprazole Sodium (Protonix Tab) 40 mg DAILY PO 11/05/17 09:00 12/05/17 08:59 11/08/17 08:55 40 MG Zolpidem Tartrate (Ambien Tab) 5 mg HS PO 11/05/17 21:00 12/05/17 20:59 11/07/17 21:10 5 MG Enalapril Maleate (Vasotec Tab) 20 mg QPM PO 11/05/17 21:00 12/05/17 20:59 11/07/17 21:07 20 MG Albuterol/ Ipratropium (Duoneb) 3 ml Q4R PRN INH 11/05/17 04:15 12/05/17 04:14 Miscellaneous (Iv Fluids Completed) 1 ea PRN PRN N/A 11/05/17 05:45 11/05/18 05:44 Miscellaneous Information (Consult) 1 ea UD PRN N/A 11/05/17 10:30 12/05/17 10:29 Piperacillin Sod/ Tazobactam Sod 4.5 gm/Dextrose 120 ml @ 30 mls/hr Q8H IV 11/05/17 18:00 11/15/17 09:59 11/08/17 09:25 30 MLS/HR Sodium Chloride ([place] Nasal [place]) 1 sprays PRN PRN NA 11/06/17 07:45 12/06/17 07:44 Loratadine (Claritin Tab) 10 mg QAM PO 11/06/17 09:00 12/06/17 08:59 11/08/17 08:55 10 MG Fluticasone Propionate (Flonase Nasal [place]) 2 sprays DAILY PRN NA 11/06/17 08:30 12/06/17 08:29 Oxycodone/ Acetaminophen (Percocet 5-325mg Tab) 1 tab Q4H PRN PO 11/07/17 09:45 11/21/17 09:44 11/08/17 09:07 1 TAB Oxycodone/ Acetaminophen (Percocet 5-325mg Tab) 2 tab Q4H PRN PO 11/07/17 09:45 11/21/17 09:44 11/08/17 03:49 2 TAB Morphine Sulfate (MoRPHine SULFATE INJ) 1 mg Q2H PRN IV 11/07/17 09:45 11/21/17 09:44 Morphine Sulfate (MoRPHine SULFATE INJ) 2 mg Q2H PRN IV 11/07/17 09:45 11/21/17 09:44 Benzonatate (Tessalon Perles Cap) 100 mg Q8H PRN PO 11/07/17 18:45 12/07/17 18:44 11/08/17 07:47 100 MG Insulin Glargine (Lantus Solostar Pen) 90 units HS SC 11/07/17 21:00 12/05/17 20:59 11/07/17 21:14 90 UNITS Insulin Aspart (novoLOG ASPART) SLIDING SCALE G... ACHS SC 11/07/17 17:15 12/05/17 17:14 11/08/17 09:01 10 UNITS Objective Vital Signs Date Time Temp Pulse Resp B/P (MAP) Pulse Ox O2 Delivery O2 Flow Rate FiO2 11/08/17 11:23 37.0 66 16 96 Room Air 11/08/17 07:50 Room Air 11/08/17 07:15 37.0 66 16 119/70 (86) 96 CPAP 11/08/17 00:21 CPAP 11/07/17 23:00 37.2 76 18 149/77 (101) 96 CPAP 11/07/17 21:00 75 154/74 (100) 11/07/17 15:35 98 Room Air 11/07/17 15:26 37.2 79 18 143/74 (97) 98 CPAP Physical Exam General Appearance: WD/WN, no apparent distress ENT: hearing grossly normal, pharynx normal Neck: supple, no JVD, trachea midline Respiratory/Chest: lungs clear, no respiratory distress, no accessory muscle use Cardiovascular: regular rate, rhythm, no edema, no murmur Abdomen: normal bowel sounds, non tender, soft, + pertinent finding (waldo clean and intact in lower abdomen, minimal surrounding erythema, no discharge from waldo) Extremities: non-tender, no pedal edema, no calf tenderness Neurologic/Psychiatric: alert, normal mood/affect, oriented x 3 Skin: normal color, warm/dry, no rash Laboratory Results Results Past 24 Hours Test 1/29/18 12:20 11/07/17 17:20 11/07/17 20:19 11/08/17 00:23 Range/Units Bedside Glucose 272 249 316 180 70-99 mg/dl Test 11/08/17 04:10 11/08/17 06:48 11/08/17 08:08 Range/Units Bedside Glucose 177 165 70-99 mg/dl White Blood Count 8.46 4.8-10.8 K/uL Red Blood Count 4.38 4.7-6.1 M/uL Hemoglobin 12.6 14.0-18.0 g/dL Hematocrit 37.3 42-52 % Mean Corpuscular Volume 85.2 80-100 fL Mean Corpuscular Hemoglobin 28.8 25-34 pg Mean Corpuscular Hemoglobin Concent 33.8 32-36 g/dl RDW Standard Deviation 43.5 36.4-46.3 fL RDW Coefficient of Variation 14.0 11.5-14.5 % Platelet Count 382 130-400 K/uL Mean Platelet Volume 9.7 7.4-10.4 fL Sodium Level 136 136-145 mmol/L Potassium Level 4.4 3.5-5.1 mmol/L Chloride Level 103 98-107 mmol/L Carbon Dioxide Level 27 21-32 mmol/L Anion Gap 6.0 3-11 mmol/L Blood Urea Nitrogen 16 7-18 mg/dl Creatinine 1.12 0.60-1.40 mg/dl Est Creatinine Clear Calc Drug Dose 102.3 ml/min Estimated GFR () 84.1 Estimated GFR (Non- 72.5 BUN/Creatinine Ratio 14.4 10-20 Random Glucose 162 70-99 mg/dl Calcium Level 9.0 8.5-10.1 mg/dl Chemistry Specimen Hemolysis Assessment and Plan 56-year-old male with past medical history of hypertension, diabetes type 2, coronary artery disease, asthma, status post gastric bypass, transitional cell cancer of the bladder, hyperlipidemia presented to the ER with acute appendicitis as visualized on CT. Reason for consult: management of diabetes and HTN. Currently POD #3. Doing well post op and plan for discharge today. Acute appendicitis: - Appendectomy per general surgery - spoke with Dr. Faulkner - ordered Zosyn IV, cultures pending. Pt tolerating diet. - plan for discharge today Post nasal drip, cough - ordered home med of Claritin, started flonase. - stated tessalon pearles which have helped cough, continue TID as outpatient Hypertension: - Continue enalapril, metoprolol Diabetes type 2: - Home medications include Lantus 90 units, insulin sliding scale and metformin 850 mg 3 times a day - Blood sugars have been 218-->345 --> 225. 20+ insulin coverage this AM - Increased lantus dose to 90 qhs and tighten sliding scale coverage - Continue home regimen upon discharge Coronary artery disease: - Had cardiac catheterization with no stents - Continue metoprolol 50 mg every morning and enalapril - Does not take aspirin due to history of gastric bypass - Developed myalgias with statins and was recommended to take Fish oil supplements by cardiology Asthma: - DuoNeb when necessary Transitional cell cancer of bladder: Stable Full code DVT prophylaxis : SCDs Disposition: Discharge today Continued [facility] stay due to: other (discharge today) Discharge planning: home History Resident Physician Supervision Note: I was present with Dr. Yoon during the history and exam. I discussed the case with the resident and agree with the findings and plan as documented in the note. Any exceptions or clarifications are listed here. Pt reports continued improvement of procedural site pain. General Appearance: no apparent distress, obese Respiratory: chest non-tender, lungs clear, normal breath sounds, no respiratory distress Cardiovascular: normal peripheral pulses, regular rate, rhythm, no murmur Gastrointestinal: normal bowel sounds, soft, no organomegaly, tenderness ( improved op site TTP) Assessment/Plan 56 y/o male h/o HTN, DMII, HLD, CAD, asthma, h/o gastric bypass, transitional cell Ca of bladder presents w/ acute appendicitis, consulted for medical mgmt Acute appendicitis - continue Zosyn, management per primary team Acute URI - symptomatic therapy with improvement HTN - stable - continue enalapril, metoprolol DMII - glargine at 90U (baseline dose) Asthma - albuterol PRN
--- NOTE | 2017-11-14 15:52 | Discharge Summary ---
Discharge Summary Dates Admission Date / Time: Nov 05, 2017 at 00:54 Discharge Date: Nov 08, 2017 Dispostion / Condition Discharge Disposition: Home Condition at Discharge: Good Principal Diagnosis (1) Acute appendicitis Problem List (1) Dyspnea (2) Chest pain (3) Diabetes (4) Heart disease (5) HTN (hypertension) (6) Kidney disease (7) Asthma (8) Bronchitis (9) Hx of bladder cancer (10) Hyperlipidemia (11) Hx of gastric bypass (12) Hx of shoulder surgery Consultations / Procedures Consultations: Hospitalist Procedures: Laparoscopic converted to open appendectomy Vaccinations: None Pending Studies / Follow-Up Appendix pathology and wound culture will be reviewed at follow up visit Medication Reconciliation New Medications: Amoxicillin & Pot Clavulanate (Augmentin 875-125 mg) 1 Tab Tab 1 TAB PO BID for 10 Days, #20 TAB Oxycodone/Acetaminophen 5MG/325MG (Percocet 5MG/325MG) Tab 1-2 TABLETS PO Q4H PRN for Pain, #30 TAB Benzonatate (Benzonatate) 100 Mg Cap 100 MG PO Q8H PRN for Cough for 7 Days, #21 CAP Continued Medications: Acetaminophen (Tylenol) 500 Mg Tab 1000 MG PO BID, TAB Allopurinol (Zyloprim) 300 Mg Tab 300 MG PO HS TAKES TOTAL 400MG Allopurinol (Zyloprim) 100 Mg Tab 100 MG PO QAM TAKES TOTAL 400MG Diclofenac Epolamine (Flector) 1.3 % Dis 1 PATCH TD BID PRN for Pain Enalapril Maleate (Enalapril Maleate) 20 Mg Tab 20 MG PO QPM Fish Oil ([place]-3) 1 Ea Cap 2 CAP PO BID Nepnqagonsy-Clr-Orz C-Manganes (Glucosamine Msm Complex) 1 Tab Tab 1 TAB PO BID Insulin Glargine (Lantus) Vial 90 UNITS SC QPM, VIAL Insulin Lispro (Human) (Humalog Kwikpen) 100 Unit/Ml Inj SQ PC SLIDING SCALE Metformin Hcl (Glucophage) 850 Mg Tab 850 MG PO TID, TAB Metoprolol Succinate (Metoprolol Succinate ER) 50 Mg Tabcr 50 MG PO QAM Pantoprazole Sodium (Protonix) 40 Mg Tab 40 MG PO DAILY Tramadol Hcl (Ultram) 50 Mg Tab 50 MG PO BID PRN for Pain, TAB Zolpidem Tartrate (Ambien) 5 Mg Tab 5 MG PO HS, TAB Admission HPI Per the Admitting provider: This is a 56-year-old male who was sent to the emergency room after he had a CT scan today showing acute appendicitis. The patient's symptoms began 4 days ago. He developed what he described as severe abdominal pain that he felt was mostly in the center of his abdomen. He took a Vicodin and the discomfort seemed to resolve. He had some nausea at that time but did not vomit. Over the next 3 days however he had more of a dull ache-like pain that was in the periumbilical area but is now in the right lower quadrant is much more severe. He no longer has nausea and has not vomited yet. He has no chills. He took his temperature yesterday and it was 99.5. He has not had a change in his bowel habits with the exception of looser stool after having taken a laxative thinking that the symptoms may be related to constipation. He's had no dysuria or hematuria. He has no symptoms like this in the past. He is status post laparoscopic Tank-en-Y gastric bypass and status post laparoscopic cholecystectomy. He initially lost 100 pounds after the bypass but the weight loss now totals proximally 60 pounds. Admission Exam Per the Admitting provider: General Appearance: no apparent distress, + obese Head: normocephalic Neck: supple, no adenopathy Cardiovascular: regular rate, rhythm, no edema Abdomen/GI: normal bowel sounds, soft, + tenderness (RLQ) Back: normal inspection, no CVA tenderness Extremities/Musculoskelatal: normal inspection Skin: normal color Hospital Course (1) Acute appendicitis Patient was taken to operating room for laparoscopic appendectomy by Dr. Faulkner in the late evening of 11/05/2017. Patient was found to have moderate inflammation and unable to find good planes of dissection via laparoscopy therefore procedure was converted to open. Appendix severely inflammed with adherence to medial cecum. Patient tolerated procedure well and was transferred to recovery and then to medical/surgical floor for post operative care. He was started on IV fluids, IV antibiotics, IV pain medication in the form of HYDRAULIC RIVETER, IV Zofran as needed for nausea and clear liquid diet. Activity as tolerated with SCDs and incentive spirometry. POD # 0 patient was evaluated and tolerated clear liquids. Slight temp at 37.7 but resolved. Diet was advanced as tolerated. POD # 1 patient tolerating regular diet, minimal incision pain with some surrounding erythema. IV Antibiotics continued. POD # 2 patient evaluated and doing well. Afebrile however increased erythema surrounding incision therefore it was opened in middle and seroma evacuated. NO purulence. IV Antibiotics were continued. HYDRAULIC RIVETER was discontinued and pt started on oral percocet as needed for pain. POD # 3 patient doing better, erythema improved but still present, no fluctuance to suggest further need for drainage. ASMITA drain with scant serous output. Afebrile. Wound culture with no growth to date. Pain controlled and tolerating diet. Patient was discharged venkat on POD # 3 with PO Percocet as needed for pain with 10 day course of Augmentin. ASMITA drain was removed prior to discharge. Discharge Instructions as given to patient Copies To Primary Care Provider: Dorie Guillen M.D..
== END 2017-11-08 13:45 | disposition home or self-care (01) ==
LOC: C.EDB 17:51 → C.MSW 11-05 00:54 → ENRESERV 11-05 01:51
PROVIDERS: ADMIT Surgery; ATTEND Surgery
DX: K35.3 Acute appendicitis with localized peritonitis (principal); J45.909 Unspecified asthma, uncomplicated; E11.9 Type 2 diabetes mellitus without complications; I12.9 Hypertensive chronic kidney disease with stage 1 through stage 4 chronic kidney disease, or unspecified chronic kidney disease; I51.9 Heart disease, unspecified; E78.5 Hyperlipidemia, unspecified; Z85.51 Personal history of malignant neoplasm of bladder; Z98.84 Bariatric surgery status; Z90.49 Acquired absence of other specified parts of digestive tract; Z83.3 Family history of diabetes mellitus; Z82.49 Family history of ischemic heart disease and other diseases of the circulatory system; Z79.84 Long term (current) use of oral hypoglycemic drugs; Z79.4 Long term (current) use of insulin; E66.01 Morbid (severe) obesity due to excess calories; N18.9 Chronic kidney disease, unspecified

== ENCOUNTER → 2017-11-04 | Outpatient (CLI) | payer BC ==
[~2017-11-04] MED LIST changes: +AMOX875T PO; +BENZ100C7 PO; +FENTANYL CITRATE INJ 50 MCG/1 ML 2 ML VIAL ONE; +HYDROmorphone HCL 0.5MG/ML 50 ML CASSETTE ONE; +OMEG10007 PO; +ONDANSETRON INJ 2 MG/ML 2 ML VIAL ONE; +OPTIRAY 320 IV PRN; +OXYC-57 PO
--- NOTE | 2017-11-04 17:06 | DIAGNOSTIC IMAGING REPORT ---
ABDOMEN AND PELVIS CT WITH IV AND ORAL CONTRAST CT DOSE: 1905.11 mGy.cm HISTORY: ACUTE ABD PAIN,PERIUMBILICAL PAIN,ACUTE RLQ PAIN.. TECHNIQUE: Multiaxial CT images of the abdomen and pelvis were performed following the use of intravenous and oral contrast. A dose lowering technique was utilized adhering to the principles of ALARA. COMPARISON STUDY: Abdominal CT 02/02/2016. FINDINGS: There is moderate thickening of the cecal base with a small amount of fluid at the cecal base. The appendix is difficult to visualize due to the surrounding inflammatory change and fluid but appears to be located within the right lower quadrant. The thickened appendix measures up to 11 mm. Therefore, these findings are consistent with acute appendicitis. No definite vascular gas to suggest a perforation. Small amount of partially loculated fluid at the cecal base without abscess at this time. Bibasilar linear densities consistent with subsegmental atelectasis. Old, healed right rib fractures. There are 2 hypodense lesions within the right hepatic lobe with the largest measuring 3 cm. These are not significant change compared to the 2015 examination. These favor hemangiomas. There is also stable 2.2 cm lesion within the left hepatic lobe likely representing a hemangioma. Cholecystectomy. The spleen, adrenal glands, and pancreas are unremarkable. Stable left renal hypodense lesions. These likely represent cysts. The 12 mm hypodense lesion within the lower pole of the right kidney has significantly decreased in size since the prior study. Therefore, this is also likely benign. No hydronephrosis. No retroperitoneal lymphadenopathy. Prior gastric bypass. No evidence for bowel obstruction. Bladder not well distended. IMPRESSION: Inflammatory changes surrounding the thickened appendix consistent with acute appendicitis. No definite perforation or abscess identified at this time. Electronically signed by: Rebel Minor M.D. 11/04/2017 5:05 PM Dictated Date/Time: 11/04/2017 4:54 PM
== END | disposition home or self-care (01) ==
LOC: C.CTS 14:22
PROVIDERS: ATTEND Family Medicine
DX: K43.2 Incisional hernia without obstruction or gangrene (principal); R10.31 Right lower quadrant pain; R10.33 Periumbilical pain

== ENCOUNTER → 2018-01-20 | Outpatient (CLI) | payer BC ==
[~2018-01-20] MED LIST changes: +BENZ100C7 PO; -CYAN10005 PO; -HYDROmorphone HCL 0.5MG/ML 50 ML CASSETTE IV ONE; +OMEG10007 PO; +OXYC-57 PO; -SILO8CAP PO
[2018-01-20 13:10] LABS: HEMOGLOBIN A1C 7.4 % (4.5-5.6)
[2018-01-20 13:40] LABS: ALBUMIN 3.6 gm/dl (3.4-5.0); BLOOD UREA NITROGEN 17 mg/dl (7-18); CALCIUM 9.3 mg/dl (8.5-10.1); CARBON DIOXIDE 29 mmol/L (21-32); CREATININE 0.89 mg/dl (0.60-1.40); GLUCOSE 171 mg/dl (70-99); PHOSPHORUS 3.2 mg/dl (2.5-4.9); POTASSIUM 4.2 mmol/L (3.5-5.1); SODIUM 137 mmol/L (136-145)
== END | disposition home or self-care (01) ==
LOC: C.LABMFLN 09:33
PROVIDERS: ATTEND Family Medicine
DX: E11.42 Type 2 diabetes mellitus with diabetic polyneuropathy (principal)

== ENCOUNTER 2021-01-11 21:22 | Inpatient (IN) ==
--- NOTE | 2021-01-11 21:35 | Emergency Department Note ---
History of Present Illness General Chief complaint: Illness Stated complaint: COVID POSITIVE Time Seen by Provider: 01/11/21 21:34 History of Present Illness This is a 60-year-old male with a history of diabetes that presents to the emergency department via private vehicle with complaints of "Covid positive, cou gh". The patient notes that he is on day 7 of Covid-like symptoms. He has had a cough. T-max at home 102.4 F. He is using Tylenol but refraining from using NSAIDs given his history of gastric bypass. He denies any chest pain or shortness of breath. No chills. He is unsure if there is a change in taste and smell secondary to using cough drops. He denies any history of PE. He did receive a phone call today from his PCP indicating that his Covid test came back positive. He notes that he is here for potential chest x-ray to rule out pneumonia. He currently is on azithromycin which was started this past . Home Medications Medication Instructions Recorded Confirmed Type cyanocobalamin (vitamin B-12) 5,000 mcg SL DAILY #90 tab 04/02/19 01/11/21 Rx 5,000 mcg sublingual tablet enalapril maleate 20 mg tablet 20 mg PO DAILY #90 tab 04/02/19 01/11/21 Rx metoprolol succinate 50 mg 50 mg PO DAILY #90 tab 04/02/19 01/11/21 Rx tablet,extended release 24 hr ferrous sulfate 325 mg (65 mg 325 mg PO DAILY #90 tab 04/10/19 01/11/21 Rx iron) tablet icosapent ethyl 1 gram capsule 2 gm PO BID #360 cap 04/10/19 01/11/21 Rx nitroglycerin 0.4 mg sublingual 0.4 mg SL Q5M PRN #20 tab 04/10/19 01/11/21 Rx tablet pen needle, diabetic 31 gauge x #30 ea 04/10/19 07/09/20 History 3/" diabetic shoes and custom inserts #1 ea 10/31/19 07/09/20 Rx dulaglutide 1.5 mg/0.5 mL 1.5 mg SQ .COMPLEX #2 ml 03/02/20 01/11/21 Rx subcutaneous pen injector linaclotide 72 mcg capsule 72 mcg PO DAILY 03/14/20 01/11/21 History allopurinol 100 mg tablet 100 mg PO DAILY #90 tab 05/04/20 01/11/21 Rx allopurinol 300 mg tablet 300 mg PO DAILY #90 tab 05/04/20 01/11/21 Rx pantoprazole 40 mg tablet,delayed 40 mg PO DAILY #90 tab 06/25/20 01/11/21 Rx release fenofibrate micronized 134 mg 134 mg PO DAILY #90 cap 09/30/20 01/11/21 Rx capsule insulin syringe-needle U-100 1 mL #100 ea 10/15/20 10/15/20 Rx 31 gauge x 02/22" insulin glargine 100 unit/mL See Rx Instructions SUBCUT DAILY 11/27/20 01/11/21 Rx subcutaneous solution #30 ml metformin 850 mg tablet 850 mg PO TID #270 tab 12/14/20 01/11/21 Rx ondansetron HCl 4 mg tablet 4 mg PO QID PRN #30 tab 12/28/20 01/11/21 Rx tramadol 50 mg tablet 50 - 100 mg PO QID PRN #180 tab 12/28/20 01/11/21 Rx zolpidem 10 mg tablet 10 mg PO HS #30 tab 12/31/20 01/11/21 Rx albuterol sulfate 90 mcg/actuation 2 puff INHALATION Q6H PRN #18 g 01/08/21 01/11/21 Rx aerosol inhaler azithromycin 250 mg tablet See Rx Instructions PO .COMPLEX #6 01/08/21 01/11/21 Rx tab Allergies Allergy/AdvReac Type Severity Reaction Status Date / Time No Known Drug Allergies Allergy Unknown NKDA Verified 07/09/20 10:08 Past Med/Surg History Medical History (Updated 01/12/21 @ 05:23 by Reji Fox PA-C) Acid reflux disease BPH with obstruction/lower urinary tract symptoms Chronic gout Coronary artery disease, non-occlusive Diabetes mellitus with diabetic polyneuropathy Generalized osteoarthritis of multiple sites HTN (hypertension) Hx of bladder cancer Hyperlipidemia Insomnia Obstructive sleep apnea Proteinuria Ventral incisional hernia Vitamin D deficiency Surgical History H/O umbilical hernia repair History of cystoscopy History of esophagogastroduodenoscopy (EGD) Hx of gastric bypass Hx of shoulder surgery S/P appendectomy S/P cardiac cath S/P carpal tunnel release S/P cholecystectomy S/P colonoscopy S/P decompression of ulnar nerve S/P tonsillectomy Family History Family/Other No pertinent family history Denies family history of Prostate cancer Social History Smoking Status: Never smoker Hx Alcohol Use: No Hx Substance Use: No Preferred Language: [place]ambican Communication Ability: Effective 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 Beliefs That Will Affect Care: None marital status: Current Living Situation: Spouse current occupational status: employed Other Information That Helps Us Care for You: No Feels Safe at Home: Yes Safety Concerns: Feels Safe At This Time Assistive Devices: Glasses Review of Systems A total of 10 systems reviewed and were otherwise negative Physical Exam Vital Signs Vital Signs - 24 hr 01/11/21 21:24 01/11/21 22:07 01/11/21 22:10 Temperature 37.6 C H Temperature Source Temporal Artery Scan Pulse Rate 87 87 Pulse Rate from SpO2 Sensor 87 Respiratory Rate 18 18 Respiratory Depth Normal Blood Pressure 174/77 H 161/82 H Blood Pressure Mean 109 108 Pulse Oximetry 90 88 L Pulse Oximetry [Exercises] 89 L Oxygen Delivery Method Room Air Room Air Room Air Oxygen Flow Rate Sepsis Recent Fever Within 48 Hours No Sepsis New/Unexplained Change in Mental Status N/A Sepsis Action Taken by Nursing No Action Required 01/11/21 22:17 01/11/21 22:21 01/11/21 22:30 Temperature Temperature Source Pulse Rate 85 Pulse Rate from SpO2 Sensor 85 Respiratory Rate 15 Respiratory Depth Blood Pressure 166/87 H Blood Pressure Mean 113 Pulse Oximetry 87 L 95 95 Pulse Oximetry [Exercises] Oxygen Delivery Method Room Air Nasal Cannula Nasal Cannula Oxygen Flow Rate 4 4 Sepsis Recent Fever Within 48 Hours Sepsis New/Unexplained Change in Mental Status Sepsis Action Taken by Nursing 01/11/21 23:00 01/11/21 23:30 01/12/21 00:00 Temperature Temperature Source Pulse Rate 82 81 81 Pulse Rate from SpO2 Sensor 83 81 78 Respiratory Rate 22 22 21 Respiratory Depth Blood Pressure 173/89 H 153/94 H 177/82 H Blood Pressure Mean 117 113 113 Pulse Oximetry 94 94 97 Pulse Oximetry [Exercises] Oxygen Delivery Method Nasal Cannula Nasal Cannula Nasal Cannula Oxygen Flow Rate 4 4 4 Sepsis Recent Fever Within 48 Hours Sepsis New/Unexplained Change in Mental Status Sepsis Action Taken by Nursing 01/12/21 00:30 01/12/21 01:00 01/12/21 01:30 Temperature Temperature Source Pulse Rate 83 82 91 H Pulse Rate from SpO2 Sensor 82 83 90 Respiratory Rate 16 16 18 Respiratory Depth Blood Pressure 152/82 H 165/87 H 185/126 H Blood Pressure Mean 105 113 145 Pulse Oximetry 96 95 96 Pulse Oximetry [Exercises] Oxygen Delivery Method Nasal Cannula Nasal Cannula Nasal Cannula Oxygen Flow Rate 4 4 4 Sepsis Recent Fever Within 48 Hours Sepsis New/Unexplained Change in Mental Status Sepsis Action Taken by Nursing VITAL SIGNS - Vital signs and nursing notes were reviewed. Stable and afebrile. GENERAL -60-year-old male appearing his stated age who is in no acute distress. Communicates well with provider and answers questions appropriately. SKIN - Without rashes. No meningeal or petechial rash. HEAD - NC/AT. EYES - PERRL with EOMI bilaterally. Sclera anicteric. EARS - No deformities of external structures noted on gross examination bilaterally. NOSE - Midline and without cyanosis. No epistaxis or purulent drainage noted. MOUTH/OROPHARYNX - Without perioral cyanosis. Buccal mucosa pink and moist and without leukoplakia. Tongue midline with equal elevation of palate bilaterally. No tonsillar hypertrophy, erythema, or exudates noted. Good dentition noted. NECK - Neck with FROM. No nuchal rigidity. LUNGS - Chest wall symmetric without accessory muscle use, intercostals retractions, or central cyanosis. Normal vesicular breath sounds CTA B/L. No wheezes, rales, or rhonchi appreciated. CARDIAC - RRR with S1/S2. No murmur, rubs, or gallops appreciated. EXTREMITIES - No clubbing or peripheral cyanosis. NEUROLOGIC - Cranial nerves II through XII grossly intact. PSYCH - A&O, and cooperates fully with examiner. Pt is very pleasant and interacts well with examiner. Course Administered Medications Hydrocodone Bit/Homatropine Methylb (Hydrocodone/Homatropine Syrup 5mg/1.5mg 5ml Udp) 5 ml PO Q4H PRN PRN Reason: Cough Stop: 01/26/21 02:39 Last Admin: 01/12/21 03:12 Dose: 5 ml Documented by: [id number] Medical Decision Making Laboratory Data Result diagrams: 01/11/21 22:45 01/11/21 22:45 Lab Results 01/11/21 01/11/21 01/11/21 Range/Units 22:45 22:45 22:45 WBC 4.97 (4.8-10.8) K/uL RBC 4.86 (4.7-6.1) M/uL Hgb 13.9 L (14.0-18.0) g/dL Hct 39.6 L (42-52) % MCV 81.5 (80-100) fL MCH 28.6 (25-34) pg MCHC 35.1 (32-36) g/dL RDW Std Deviation 39.7 (36.4-46.3) fL RDW Coeff of Chaparro 13.1 (11.5-14.5) % Plt Count 232 (130-400) K/uL MPV 9.1 (7.4-10.4) fL Immature Gran % (Auto) 0.4 % Neut % (Auto) 87.1 % Lymph % (Auto) 8.7 % Wharton % (Auto) 3.6 % Eos % (Auto) 0.0 % Baso % (Auto) 0.2 % Neut # (Auto) 4.33 (1.4-6.5) K/uL Lymph # (Auto) 0.43 L (1.2-3.4) K/uL Wharton # (Auto) 0.18 (0.11-0.59) K/uL Eos # (Auto) 0.00 (0-0.5) K/uL Baso # (Auto) 0.01 (0-0.2) K/uL Immature Gran # (Auto) 0.02 (0.00-0.02) K/uL PT 10.4 (9.0-12.0) Seconds INR 1.0 (0.9-1.1) APTT 30.4 (21.0-31.0) Seconds PTT Ratio 1.2 Sodium 134 L (136-145) mmol/L Potassium 4.2 (3.5-5.1) mmol/L Chloride 101 (98-107) mmol/L Carbon Dioxide 27 (21-32) mmol/L Anion Gap 6.0 (3-11) BUN 17 (7-18) mg/dl Creatinine 0.94 (0.6-1.4) mg/dl Est Cr Clr Drug Dosing 122.1 ml/min Est GFR ( Amer) 101.0 Est GFR (Non-Af Amer) 87.2 BUN/Creatinine Ratio 18.1 (10-20) Glucose 151 H (70-99) mg/dl Lactate (0.4-2.0) mmol/L Calcium 8.2 L (8.5-10.1) mg/dl Magnesium 1.7 L (1.8-2.4) mg/dl Total Bilirubin 0.4 (0.2-1) mg/dl AST 43 H (15-37) U/L ALT 29 (12-78) U/L Alkaline Phosphatase 84 (45-117) U/L Troponin I < 0.015 (0-0.045) ng/ml Total Protein 7.0 (6.4-8.2) gm/dl Albumin 3.4 (3.4-5.0) gm/dl Globulin 3.6 (2.5-4.0) gm/dl Albumin/Globulin Ratio 0.9 (0.9-2) Procalcitonin (0-0.5) ng/ml 01/11/21 01/11/21 Range/Units 22:45 22:45 WBC (4.8-10.8) K/uL RBC (4.7-6.1) M/uL Hgb (14.0-18.0) g/dL Hct (42-52) % MCV (80-100) fL MCH (25-34) pg MCHC (32-36) g/dL RDW Std Deviation (36.4-46.3) fL RDW Coeff of Chaparro (11.5-14.5) % Plt Count (130-400) K/uL MPV (7.4-10.4) fL Immature Gran % (Auto) % Neut % (Auto) % Lymph % (Auto) % Wharton % (Auto) % Eos % (Auto) % Baso % (Auto) % Neut # (Auto) (1.4-6.5) K/uL Lymph # (Auto) (1.2-3.4) K/uL Wharton # (Auto) (0.11-0.59) K/uL Eos # (Auto) (0-0.5) K/uL Baso # (Auto) (0-0.2) K/uL Immature Gran # (Auto) (0.00-0.02) K/uL PT (9.0-12.0) Seconds INR (0.9-1.1) APTT (21.0-31.0) Seconds PTT Ratio Sodium (136-145) mmol/L Potassium (3.5-5.1) mmol/L Chloride (98-107) mmol/L Carbon Dioxide (21-32) mmol/L Anion Gap (3-11) BUN (7-18) mg/dl Creatinine (0.6-1.4) mg/dl Est Cr Clr Drug Dosing ml/min Est GFR ( Amer) Est GFR (Non-Af Amer) BUN/Creatinine Ratio (10-20) Glucose (70-99) mg/dl Lactate 0.8 (0.4-2.0) mmol/L Calcium (8.5-10.1) mg/dl Magnesium (1.8-2.4) mg/dl Total Bilirubin (0.2-1) mg/dl AST (15-37) U/L ALT (12-78) U/L Alkaline Phosphatase (45-117) U/L Troponin I (0-0.045) ng/ml Total Protein (6.4-8.2) gm/dl Albumin (3.4-5.0) gm/dl Globulin (2.5-4.0) gm/dl Albumin/Globulin Ratio (0.9-2) Procalcitonin < 0.05 (0-0.5) ng/ml Imaging Data My Impression: There is a multifocal pneumonia noted. This is likely viral in nature. MDM Narrative Patient was seen and evaluated as above in room C4. Review was performed of nursing notes and vital signs. I did review pertinent previous visits and patient history. After obtaining a thorough history and physical examination the above work up was performed. Patient presents to us today with a recent diagnosis of COVID-19. On arrival he is saturating at 90% without oxygen. On examination the patient does not display increased work of breathing. He clinically appears well. Options of care were discussed with the patient. IV access was established. Labs were drawn. Chest x-ray and EKG were obtained. Chest x-ray is concerning for mu ltifocal pneumonia likely viral in the setting of recent COVID-19 diagnosis. An EKG was obtained and reveals normal sinus rhythm at a rate of 83 bpm. QTc 437. QRS 102. Laboratory studies were no leukocytosis. Mild anemia noted. No emergent metabolic disturbance. Mild hypocalcemia and hypomagnesemia. Pro-Serg and troponin are negative. Lactic negative. I suspect that the patient's presentation is likely secondary to that of COVID-19. Patient did become hypoxic while here with good waveform at 87% on room air. He was then started on 4 L O2 nasal cannula and was saturating around 94%. Given this finding in the setting of diabetes, COVID-19 diagnosis, Covid pneumonia, I do believe that further ev aluation and management inpatient setting is warranted. Patient was educated upon recommendation as well as benefit versus risk. I believe that is in the patient's best interest to be admitted for further evaluation and management and believe that this perceived benefit outweighs the risk. I do not believe that the patient is a candidate at this current time in his current state for discharge on p.o. steroids/supplemental O2. Case discussed with the hospitalist as well as the attending physician. Patient was evaluated by the hospitalist. Please refer to further documentation regarding his stay. Case was discussed with the attending physician. An order was placed for continuous cardiac monitoring. The monitor shows a rate of 87 with sinus rhythm. GCS: 15 In the evaluation and treatment of this patient, the following differential diagnoses were considered: NC, ASC, Dysrhythmia, Angina, Mediastinitis, GERD, Esophagitis, PE, Pneumonia, Bronchitis, Costochondritis, Rib Fracture, Zoster, COVID-19, among others. Impression & Plan COVID-19, Pneumonia Discharge Plan Visit Data Chief Complaint: Illness Stated Complaint: COVID POSITIVE ED Provider: Sebastián Kumar ED Midlevel Provider: Reji Fox Discharge Problem: COVID-19, Pneumonia Patient Disposition: Admitted As Inpatient Condition: Good Discharge Instructions Interventions: ED Discharge Assessment Last Done: 01/12/21 02:13
[2021-01-11 23:03] LABS: Basophils # (auto) 0.01 K/uL (0-0.2); Basophils % (auto) 0.2 %; Hematocrit (blood only) 39.6 % (42-52); Hemoglobin 13.9 g/dL (14.0-18.0); Immature Granulocytes # (auto) 0.02 K/uL (0.00-0.02); Immature Granulocytes % (auto) 0.4 %; Lymphocytes # (auto) 0.43 K/uL (1.2-3.4); Lymphocytes % (auto) 8.7 %; Mean Corpuscular Hemoglobin 28.6 pg (25-34); Mean Corpuscular Hgb Conc 35.1 g/dL (32-36); Mean Corpuscular Volume 81.5 fL (80-100); Mean Platelet Volume 9.1 fL (7.4-10.4); Monocytes # (auto) 0.18 K/uL (0.11-0.59); Monocytes % (auto) 3.6 %; Neutrophils # (auto) 4.33 K/uL (1.4-6.5); Neutrophils % (auto) 87.1 %; Platelet Count 232 K/uL (130-400); RDW Coefficient of Variation 13.1 % (11.5-14.5); RDW Standard Deviation 39.7 fL (36.4-46.3); Red Blood Count 4.86 M/uL (4.7-6.1); White Blood Count 4.97 K/uL (4.8-10.8)
[2021-01-11 23:14] LABS: Alanine Aminotransferase 29 U/L (12-78); Albumin Level 3.4 gm/dl (3.4-5.0); Aspartate Aminotransferase 43 U/L (15-37); BUN Creatinine Ratio 18.1 (10-20); Blood Urea Nitrogen 17 mg/dl (7-18); Calcium 8.2 mg/dl (8.5-10.1); Carbon Dioxide 27 mmol/L (21-32); Chloride 101 mmol/L (98-107); Creatinine Clr Calc Pharmacy 122.1 ml/min; Est GFR (Non-African American) 87.2; Glucose 151 mg/dl (70-99); Magnesium 1.7 mg/dl (1.8-2.4); Potassium 4.2 mmol/L (3.5-5.1); Sodium 134 mmol/L (136-145)
[2021-01-11 23:19] LABS: Albumin Globulin Ratio 0.9 (0.9-2); Alkaline Phosphatase 84 U/L (45-117); Bilirubin,Total 0.4 mg/dl (0.2-1); Globulin 3.6 gm/dl (2.5-4.0); Troponin I < 0.015 ng/ml (0-0.045)
[2021-01-11 23:23] LABS: Partial Thromboplastin Ratio 1.2; Partial Thromboplastin Time 30.4 Seconds (21.0-31.0); Prothrombin Time 10.4 Seconds (9.0-12.0)
--- NOTE | 2021-01-12 01:47 | History & Physical Report ---
Date of Service January 12, 2021 Assessment & Plan (1) Pneumonia due to COVID-19 virus: Pneumonia due to COVID-19 virus/multifocal pneumonia, secondary bacterial and primary viral/with hypoxia- Dexamethasone 6 mg IV every morning Ceftriaxone 2 g IV daily Azithromycin 500 mg IV daily Duonebs every 4 hours while awake and every 2 hours when necessary. Hycodan syrup, 5 mL p.o. every 4 hours as needed severe cough Nasal cannula oxygen, titrate to keep pulse ox 94 to 95% Lovenox 40 mg subcu daily Present on Admission?: Yes (2) Multifocal pneumonia: Most prominent on x-ray: Right upper lobe, and less so bilateral lower lobes. Patient reports that he was getting better after 3-4 days, but since that time has been gradually worsening. He will be treated for secondary bacterial superinfection Present on Admission?: Yes (3) Hypoxia: See above Lowest pulse ox recorded in the ED was 87% while on room air Present on Admission?: Yes (4) Coronary artery disease, non-occlusive: CAD/hypertension- Continue enalapril 20 mg daily, metoprolol succinate 50 mg daily, nitroglycerin sublingual as as needed Present on Admission?: Yes (5) HTN (hypertension): See above Present on Admission?: Yes (6) Diabetes mellitus with diabetic polyneuropathy: Continue insulin glargine 90 units subcu daily. Hold metformin Placed in Accu-Cheks before meals and at bedtime with NovoLog coverage per scale Check hemoglobin A1c Present on Admission?: Yes (7) Hyperlipidemia: Continue fenofibrate Present on Admission?: Yes (8) Chronic gout: Continue allopurinol Present on Admission?: Yes (9) Acid reflux disease: Continue pantoprazole Present on Admission?: Yes (10) BPH w urinary obs/LUTS: Not on any overt treatment at this time Monitor for retention Present on Admission?: Yes History of Present Illness Chief Complaint: The patient presents to the emergency department with worsening cough, shortness of breath, over the past 7 days, and temperature to 102.4 F at home this evening. Primary Care Provider: Dorie Guillen MD The patient is a 60-year-old male with a past medical history including BPH with LUTS, ulnar nerve decompression, carpal tunnel release, umbilical hernia repair, GERD, chronic gout, nonocclusive CAD, diabetes mellitus with polyneuropathy, generalized osteoarthritis of multiple sites, insomnia, ASHA, proteinuria, vitamin D deficiency, hypertension, history of bladder cancer, hyperlipidemia and history of gastric bypass. The patient was diagnosed with COVID-19 infection 2 days ago, after having developed symptoms 7 days ago. With worsening of his symptoms of cough and shortness of breath, and the development of a temperature to 102.4 at home this evening he presented to the ED for assessment. Allergies Allergy/AdvReac Type Severity Reaction Status Date / Time No Known Drug Allergies Allergy Unknown NKDA Verified 07/09/20 10:08 Home Medications Medication Instructions Recorded Confirmed Type cyanocobalamin (vitamin B-12) 5,000 mcg SL DAILY #90 tab 04/02/19 01/11/21 Rx 5,000 mcg sublingual tablet enalapril maleate 20 mg tablet 20 mg PO DAILY #90 tab 04/02/19 01/11/21 Rx metoprolol succinate 50 mg 50 mg PO DAILY #90 tab 04/02/19 01/11/21 Rx tablet,extended release 24 hr ferrous sulfate 325 mg (65 mg 325 mg PO DAILY #90 tab 04/10/19 01/11/21 Rx iron) tablet icosapent ethyl 1 gram capsule 2 gm PO BID #360 cap 04/10/19 01/11/21 Rx nitroglycerin 0.4 mg sublingual 0.4 mg SL Q5M PRN #20 tab 04/10/19 01/11/21 Rx tablet pen needle, diabetic 31 gauge x #30 ea 04/10/19 07/09/20 History 12/23" diabetic shoes and custom inserts #1 ea 10/31/19 07/09/20 Rx dulaglutide 1.5 mg/0.5 mL 1.5 mg SQ .COMPLEX #2 ml 03/02/20 01/11/21 Rx subcutaneous pen injector linaclotide 72 mcg capsule 72 mcg PO DAILY 03/14/20 01/11/21 History allopurinol 100 mg tablet 100 mg PO DAILY #90 tab 05/04/20 01/11/21 Rx allopurinol 300 mg tablet 300 mg PO DAILY #90 tab 05/04/20 01/11/21 Rx pantoprazole 40 mg tablet,delayed 40 mg PO DAILY #90 tab 06/25/20 01/11/21 Rx release fenofibrate micronized 134 mg 134 mg PO DAILY #90 cap 09/30/20 01/11/21 Rx capsule insulin syringe-needle U-100 1 mL #100 ea 10/15/20 10/15/20 Rx 31 gauge x 02/22" insulin glargine 100 unit/mL See Rx Instructions SUBCUT DAILY 11/27/20 01/11/21 Rx subcutaneous solution #30 ml metformin 850 mg tablet 850 mg PO TID #270 tab 12/14/20 01/11/21 Rx ondansetron HCl 4 mg tablet 4 mg PO QID PRN #30 tab 12/28/20 01/11/21 Rx tramadol 50 mg tablet 50 - 100 mg PO QID PRN #180 tab 12/28/20 01/11/21 Rx zolpidem 10 mg tablet 10 mg PO HS #30 tab 12/31/20 01/11/21 Rx albuterol sulfate 90 mcg/actuation 2 puff INHALATION Q6H PRN #18 g 01/08/21 01/11/21 Rx aerosol inhaler azithromycin 250 mg tablet See Rx Instructions PO .COMPLEX #6 01/08/21 01/11/21 Rx tab Past Med/Surg History Medical History (Updated 01/12/21 @ 05:36 by Luis F Mcmullen MD) Acid reflux disease BPH with obstruction/lower urinary tract symptoms Chronic gout Coronary artery disease, non-occlusive Diabetes mellitus with diabetic polyneuropathy Generalized osteoarthritis of multiple sites HTN (hypertension) Hx of bladder cancer Hyperlipidemia Insomnia Obstructive sleep apnea Proteinuria Ventral incisional hernia Vitamin D deficiency Surgical History H/O umbilical hernia repair History of cystoscopy History of esophagogastroduodenoscopy (EGD) Hx of gastric bypass Hx of shoulder surgery S/P appendectomy S/P cardiac cath S/P carpal tunnel release S/P cholecystectomy S/P colonoscopy S/P decompression of ulnar nerve S/P tonsillectomy Family History Family/Other No pertinent family history Denies family history of Prostate cancer Social History Smoking Status: Never smoker Hx Alcohol Use: No Hx Substance Use: No Preferred Language: Spanish Communication Ability: Effective Shampoo Person Required: No Beliefs That Will Affect Care: None marital status: Current Living Situation: Spouse current occupational status: employed Other Information That Helps Us Care for You: No Feels Safe at Home: Yes Safety Concerns: Feels Safe At This Time Assistive Devices: Glasses Review of Systems Review of Systems: The patient denies palpitations, lower extremity swelling, sore throat, fevers, chills, sweats, nausea, vomiting, diarrhea , constipation, abdominal pain, pelvic pain, blood in urine or stool, dysuria, urinary frequency or urgency, lightheadedness, dizziness, headache, memory loss, loss of consciousness, rash, abnormal bruising or bleeding, imbalance, focal or generalized weakness, numbness or tingling in arms or legs, generalized arthralgias or myalgias, back or neck pain, or night sweats. The review of systems is otherwise negative other than for that already noted above, and at least 10 systems have been reviewed. Physical Exam Physical Exam: The patient is awake, alert and oriented 3, well developed and well nourished, normocephalic and atraumatic, lying in bed and in no acute distress. HEENT--PERRL, EOMI, mucous membranes and oropharynx normal. Neck--supple. No JVD. No bruits. Thyroid normal, trachea midline, no adenopathy. Heart--normal S1 and S2. No murmurs, rubs or gallops. Lungs--coarse breath sounds right side >left. No respiratory distress, no accessory muscle use. Abdomen--normal bowel sounds and soft. Nontender. Nondistended. Morbidly obese Extremities--no cyanosis or clubbing. No edema. Neurologic--cranial nerves II through XII grossly intact. Rheumatologic--normal range of motion. Psychiatric--normal affect. Results & Data Results & Data ([facility]) Vital Signs (Past 12 Hours) Vital Signs Temp Pulse Resp BP Pulse Ox Pulse Ox 01/12/21 01:30 91 H 18 185/126 H 96 01/12/21 01:00 82 16 165/87 H 95 01/12/21 00:30 83 16 152/82 H 96 01/12/21 00:00 81 21 177/82 H 97 01/11/21 23:30 81 22 153/94 H 94 01/11/21 23:00 82 22 173/89 H 94 01/11/21 22:30 85 15 166/87 H 95 01/11/21 22:21 95 01/11/21 22:17 87 L 01/11/21 22:10 89 L 01/11/21 22:07 87 18 161/82 H 88 L 01/11/21 21:24 99.7 F H 87 18 174/77 H 90 Laboratory Results Laboratory Results WBC 4.97 K/uL (4.8-10.8) 01/11/21 22:45 RBC 4.86 M/uL (4.7-6.1) 01/11/21 22:45 Hgb 13.9 g/dL (14.0-18.0) L 01/11/21 22:45 Hct 39.6 % (42-52) L 01/11/21 22:45 MCV 81.5 fL (80-100) 01/11/21 22:45 MCH 28.6 pg (25-34) 01/11/21 22:45 MCHC 35.1 g/dL (32-36) 01/11/21 22:45 RDW Std Deviation 39.7 fL (36.4-46.3) 01/11/21 22:45 RDW Coeff of [place] 13.1 % (11.5-14.5) 01/11/21 22:45 Plt Count 232 K/uL (130-400) 01/11/21 22:45 MPV 9.1 fL (7.4-10.4) 01/11/21 22:45 Immature Gran % (Auto) 0.4 % 01/11/21 22:45 Neut % (Auto) 87.1 % 01/11/21 22:45 Lymph % (Auto) 8.7 % 01/11/21 22:45 [place] % (Auto) 3.6 % 01/11/21 22:45 Eos % (Auto) 0.0 % 01/11/21 22:45 Baso % (Auto) 0.2 % 01/11/21 22:45 Neut # (Auto) 4.33 K/uL (1.4-6.5) 01/11/21 22:45 Lymph # (Auto) 0.43 K/uL (1.2-3.4) L 01/11/21 22:45 [place] # (Auto) 0.18 K/uL (0.11-0.59) 01/11/21 22:45 Eos # (Auto) 0.00 K/uL (0-0.5) 01/11/21 22:45 Baso # (Auto) 0.01 K/uL (0-0.2) 01/11/21 22:45 Immature Gran # (Auto) 0.02 K/uL (0.00-0.02) 01/11/21 22:45 PT 10.4 Seconds (9.0-12.0) 01/11/21 22:45 INR 1.0 (0.9-1.1) 01/11/21 22:45 APTT 30.4 Seconds (21.0-31.0) 01/11/21 22:45 PTT Ratio 1.2 01/11/21 22:45 Sodium 134 mmol/L (136-145) L 01/11/21 22:45 Potassium 4.2 mmol/L (3.5-5.1) 01/11/21 22:45 Chloride 101 mmol/L (98-107) 01/11/21 22:45 Carbon Dioxide 27 mmol/L (21-32) 01/11/21 22:45 Anion Gap 6.0 (3-11) 01/11/21 22:45 BUN 17 mg/dl (7-18) 01/11/21 22:45 Creatinine 0.94 mg/dl (0.6-1.4) 01/11/21 22:45 Est Cr Clr Drug Dosing 122.1 ml/min 01/11/21 22:45 Est GFR ( Amer) 101.0 01/11/21 22:45 Est GFR (Non-Af Amer) 87.2 01/11/21 22:45 BUN/Creatinine Ratio 18.1 (10-20) 01/11/21 22:45 Glucose 151 mg/dl (70-99) H 01/11/21 22:45 Lactate 0.8 mmol/L (0.4-2.0) 01/11/21 22:45 Calcium 8.2 mg/dl (8.5-10.1) L 01/11/21 22:45 Magnesium 1.7 mg/dl (1.8-2.4) L 01/11/21 22:45 Total Bilirubin 0.4 mg/dl (0.2-1) 01/11/21 22:45 AST 43 U/L (15-37) H 01/11/21 22:45 ALT 29 U/L (12-78) 01/11/21 22:45 Alkaline Phosphatase 84 U/L (45-117) 01/11/21 22:45 Troponin I < 0.015 ng/ml (0-0.045) 01/11/21 22:45 Total Protein 7.0 gm/dl (6.4-8.2) 01/11/21 22:45 Albumin 3.4 gm/dl (3.4-5.0) 01/11/21 22:45 Globulin 3.6 gm/dl (2.5-4.0) 01/11/21 22:45 Albumin/Globulin Ratio 0.9 (0.9-2) 01/11/21 22:45 Procalcitonin < 0.05 ng/ml (0-0.5) 01/11/21 22:45 Code Status & VTE Plan Code Status Full code VTE Prophylaxis Plan VTE Prophylaxis will be ordered: Yes PG Care Time/CCT Total # of Minutes Spent Total Time Spent with Patient: Total time spent is greater than 50% in coordination of care (as documented) at patient's floor/unit and/or counseling patient: Coding Level of Care Code 35196 Initial Inpt Care Lvl 3 Diagnoses Pneumonia due to COVID-19 virus U07.1; J12.82 Multifocal pneumonia J18.9 Hypoxia R09.02 Coronary artery disease, non-occlusive I25.10 HTN (hypertension) I10 Diabetes mellitus with diabetic polyneuropathy E11.42 Hyperlipidemia E78.5 Chronic gout [id number] Acid reflux disease K21.9 BPH w urinary obs/LUTS N40.1; N13.8
[2021-01-12] MEDS ORDERED: GLUCOSE 10 TABS/TUBE PO PRN (02:40)
[2021-01-12] MEDS ORDERED: ONDANSETRON INJ 2 MG/ML 2 ML VIAL IV PRN (02:40)
[2021-01-12] MEDS ORDERED: ACETAMINOPHEN 325 MG TAB PO PRN (02:40)
[2021-01-12] MEDS ORDERED: GLUCOSE 40% GEL 15 GM TUBE PO PRN (02:40)
[2021-01-12] MEDS ORDERED: NITROGLYCERIN SL 0.4 MG/TAB TAB SL PRN (02:40)
[2021-01-12] MEDS ORDERED: DEXTROSE 50% 50 ML SYRINGE IV PRN (02:40)
[2021-01-12] MEDS ORDERED: CARBOHYDRATES FOR HYPOGLYCEMIA PO PRN (02:40)
[2021-01-12] MEDS ORDERED: GLUCAGON FOR INJ 1 MG VIAL SQ PRN (02:40)
[2021-01-12] MEDS ORDERED: traMADol HCL 50 MG TABLET PO PRN (02:40)
[2021-01-12] MEDS ORDERED: ONDANSETRON 4 MG OD TAB PO PRN (02:55)
[2021-01-12] MEDS: HYDROcodone/HOMATROPINE SYRUP 5MG/1.5MG 5ML UDP PO PRN ×5 (03:12→21:40)
[2021-01-12] MEDS: dexAMETHasone 6 MG in SYRINGE 0 ML IV SCH (04:45)
[2021-01-12] MEDS ORDERED: ENOXAPARIN 0.5 MG/KG SQ SCH (05:45)
[2021-01-12 06:41] LABS: Estimated Average Glucose 163 mg/dl; Hemoglobin A1C 7.3 % (4.5-5.6)
[2021-01-12 06:45] LABS: Appearance Urine Clear (Clear); Bacteria Urine Automated Negative (Negative); Bilirubin Urine Negative (Negative); Blood Urine Negative (Negative); Color Urine Yellow; Epithelial Cell Urine Auto 0-5 /lpf (0-5); Glucose Urine UA Negative (Negative); Ketones Urine Negative (Negative); Leukocyte Esterase Urine Negative (Negative); Nitrite Urine Negative (Negative); Protein Urine 2+ (Negative); RBC Urine Automated 0-4 /hpf (0-4); Specific Gravity Urine 1.021 (1.000-1.030); Urobilinogen Urine Negative (Negative); pH Urine 5.5 (4.5-7.5)
--- NOTE | 2021-01-12 06:52 | XRay Report ---
XR chest 1V portable CLINICAL HISTORY: cough, covid COMPARISON STUDY: May 31, 2016 FINDINGS: The heart is enlarged. There are multifocal airspace opacities consistent with a multifocal pneumonia. There are are no large pleural effusions. There is no overt failure. There are old right- sided rib deformities.[ IMPRESSION: Multifocal airspace opacities consistent with a multifocal pneumonia ACT 112: Negative or not required by law. Electronically signed by: Mckinley Kurtz M.D. 01/12/2021 6:51 AM
[2021-01-12] MEDS: ALBUT/IPRATROP 3MG/0.5MG NEB 3 ML VIAL NEB SCH ×2 (07:15→12:12)
[2021-01-12] MEDS: TRICOR~ORDER AWAITING ACTION SCH ×3 (07:40→23:31)
[2021-01-12] MEDS: VASCEPA~ORDER AWAITING ACTION SCH ×3 (07:40→23:32)
[2021-01-12] MEDS: allopurinoL 100 MG TAB PO SCH (07:48)
[2021-01-12] MEDS: CYANOCOBALAMIN (VITAMIN B-12) 2,500 MCG TAB.SUBL SL SCH (07:48)
[2021-01-12] MEDS: FERROUS SULFATE 325 MG TAB PO SCH (07:48)
[2021-01-12] MEDS: PANTOprazole 40 MG TAB PO SCH (07:48)
[2021-01-12] MEDS: allopurinoL 300 MG TAB PO SCH (07:48)
[2021-01-12] MEDS: ZINC SULFATE 220 MG CAPSULE PO SCH (07:48)
[2021-01-12] MEDS: ENALAPRIL MALEATE 10 MG TAB PO SCH (07:49)
[2021-01-12] MEDS: METOPROLOL SUCC 50MG EXT REL TAB PO SCH (07:49)
[2021-01-12] MEDS: CHOLECALCIFEROL 1,000 UNITS 25 MCG TAB PO SCH (07:49)
[2021-01-12] MEDS: cefTRIAXone SODIUM 2,000 MG in DEXTROSE 5% 50 ML IV SCH (07:49)
[2021-01-12] MEDS ORDERED: LINZESS~ORDER AWAITING ACTION SCH (08:00)
[2021-01-12] MEDS: ENOXAPARIN 80 MG/0.8 ML SYR SQ SCH ×2 (08:24→21:40)
[2021-01-12] MEDS ORDERED: MAGNESIUM SULFATE / D5W 1 GM/100 ML BAG IV ONE (09:00)
[2021-01-12] MEDS ORDERED: AZITHROMYCIN 500 MG in DEXTROSE 5% 250 ML IV SCH (09:00)
[2021-01-12] MEDS ORDERED: INSULIN GLARGINE SOLOSTAR 100 UNITS/ML 3 ML PEN SQ SCH ×2 (09:00→21:00)
[2021-01-12] MEDS: INSULIN ASPART 100 UNITS/ML 3 ML PEN SC SCH ×4 (09:04→21:43)
--- NOTE | 2021-01-12 09:23 | Electrocardiogram Report ---
Test Reason : Blood Pressure : / mmHG Vent. Rate : 083 BPM Atrial Rate : 083 BPM P-R Int : 178 ms QRS Dur : 102 ms QT Int : 372 ms P-R-T Axes : 066 017 030 degrees QTc Int : 437 ms Poor data quality, interpretation may be adversely affected Normal sinus rhythm Normal ECG When compared with ECG of 04-NOV-2017 22:09, Premature atrial complexes are no longer Present Confirmed by Milton Carlin ([id number]) on 01/12/2021 9:22:28 AM Referred By: Dorie Guillen Confirmed By:Milton Carlin
[2021-01-12] MEDS: linaCLOtide 72 MCG CAPSULE PO SCH (10:40)
[2021-01-12] MEDS ORDERED: ALBUT/IPRATROP 3MG/0.5MG NEB 3 ML VIAL NEB PRN (11:19)
--- NOTE | 2021-01-12 12:32 | History & Physical Bridge Note ---
Date of Service January 12, 2021 History & Physical Bridge Note I have examined the patient, reviewed the History & Physical and in the interval since the performance of the History & Physical I have noted the following changes of clinical significance: Patient already feeling much improved and is weaned off oxygen. He is asking if he can go home but he just got to the floor within the last 6 hours. He denies any shortness of breath or cough, no nausea or vomiting. No abdominal pain or diarrhea. Vitals reviewed Gen: AAOx3, NAD, obese HEENT: Anicteric sclerae, EOMI CV: RRR no mgr nl S1S2 Pulm: Mild crackles at the lower lung toth, otherwise clear but diminished throughout due to obesity Abd: +BS soft NT ND no masses or hernias Ext: No edema or calf tenderness Skin: No rashes, warm/dry Neuro: Full strength throughout Laboratory values from admission reviewed, procalcitonin negative, troponin ne gative, UA negative, blood cultures no growth to date, hemoglobin A1c 7.3% 60-year-old male here with Covid-19 pneumonia and acute respiratory failure with hypoxia-already greatly improved Continue current treatment He takes his Lantus in the evening-changed this from a.m. to at bedtime dosing Lowered range and correction factor for NovoLog Follow laboratory values to include CBC, CRP, CMP in the morning -Change azithromycin from IV to p.o. Make albuterol nebs as needed If doing very well, could potentially discharged home tomorrow
[2021-01-12] MEDS ORDERED: ZOLPIDEM TARTRATE 10 MG TAB PO SCH (21:00)
[2021-01-13] MEDS: HYDROcodone/HOMATROPINE SYRUP 5MG/1.5MG 5ML UDP PO PRN ×3 (02:09→11:01)
[2021-01-13] MEDS: dexAMETHasone 6 MG in SYRINGE 0 ML IV SCH (03:44)
[2021-01-13 07:14] LABS: Albumin Level 3.2 gm/dl (3.4-5.0); BUN Creatinine Ratio 20.6 (10-20); C Reactive Protein 7.84 mg/dl (0-0.29); Calcium 8.6 mg/dl (8.5-10.1); Creatinine Clr Calc Pharmacy 105.4 ml/min; Est GFR (African American) 86.4; Est GFR (Non-African American) 74.5; Potassium 4.2 mmol/L (3.5-5.1)
[2021-01-13 07:17] LABS: Albumin Globulin Ratio 0.9 (0.9-2); Bilirubin,Total 0.4 mg/dl (0.2-1); Globulin 3.7 gm/dl (2.5-4.0); Total Protein 6.9 gm/dl (6.4-8.2)
[2021-01-13 07:31] LABS: Basophils # (auto) 0.02 K/uL (0-0.2); Basophils % (auto) 0.3 %; Eosinophils # (auto) 0.02 K/uL (0-0.5); Eosinophils % (auto) 0.3 %; Hematocrit (blood only) 38.7 % (42-52); Hemoglobin 13.4 g/dL (14.0-18.0); Immature Granulocytes # (auto) 0.03 K/uL (0.00-0.02); Immature Granulocytes % (auto) 0.4 %; Lymphocytes # (auto) 0.57 K/uL (1.2-3.4); Lymphocytes % (auto) 8.2 %; Mean Corpuscular Hemoglobin 28.3 pg (25-34); Mean Corpuscular Volume 81.6 fL (80-100); Mean Platelet Volume 9.3 fL (7.4-10.4); Monocytes # (auto) 0.28 K/uL (0.11-0.59); Neutrophils # (auto) 6.01 K/uL (1.4-6.5); Neutrophils % (auto) 86.8 %; Platelet Count 282 K/uL (130-400); RDW Coefficient of Variation 13.3 % (11.5-14.5); RDW Standard Deviation 39.9 fL (36.4-46.3); Red Blood Count 4.74 M/uL (4.7-6.1); White Blood Count 6.93 K/uL (4.8-10.8)
[2021-01-13 07:55] LABS: Mean Corpuscular Hgb Conc 34.6 g/dL (32-36)
[2021-01-13] MEDS: cefTRIAXone SODIUM 2,000 MG in DEXTROSE 5% 50 ML IV SCH (08:01)
[2021-01-13] MEDS: CYANOCOBALAMIN (VITAMIN B-12) 2,500 MCG TAB.SUBL SL SCH (08:03)
[2021-01-13] MEDS: METOPROLOL SUCC 50MG EXT REL TAB PO SCH (08:04)
[2021-01-13] MEDS: allopurinoL 100 MG TAB PO SCH (08:04)
[2021-01-13] MEDS: FERROUS SULFATE 325 MG TAB PO SCH (08:05)
[2021-01-13] MEDS: ENALAPRIL MALEATE 10 MG TAB PO SCH (08:05)
[2021-01-13] MEDS: allopurinoL 300 MG TAB PO SCH (08:05)
[2021-01-13] MEDS: ZINC SULFATE 220 MG CAPSULE PO SCH (08:05)
[2021-01-13] MEDS: PANTOprazole 40 MG TAB PO SCH (08:05)
[2021-01-13] MEDS: CHOLECALCIFEROL 1,000 UNITS 25 MCG TAB PO SCH (08:05)
[2021-01-13] MEDS: ENOXAPARIN 80 MG/0.8 ML SYR SQ SCH (08:06)
[2021-01-13] MEDS: TRICOR~ORDER AWAITING ACTION SCH (08:36)
[2021-01-13] MEDS: linaCLOtide 72 MCG CAPSULE PO SCH (08:36)
[2021-01-13] MEDS: VASCEPA~ORDER AWAITING ACTION SCH (08:36)
[2021-01-13] MEDS ORDERED: AZITHROMYCIN 250 MG TAB PO SCH (09:00)
[2021-01-13] MEDS: INSULIN ASPART 100 UNITS/ML 3 ML PEN SC SCH ×2 (10:02→13:01)
--- NOTE | 2021-01-13 13:26 | Discharge Summary ---
Date of Service January 13, 2021 Admission HPI Per Admitting Provider The patient is a 60-year-old male with a past medical history including BPH with LUTS, ulnar nerve decompression, carpal tunnel release, umbilical hernia repair, GERD, chronic gout, nonocclusive CAD, diabetes mellitus with polyneuropathy, generalized osteoarthritis of multiple sites, insomnia, ASHA, proteinuria, vitamin D deficiency, hypertension, history of bladder cancer, hyperlipidemia and history of gastric bypass. The patient was diagnosed with COVID-19 infection 2 days ago, after having developed symptoms 7 days ago. With worsening of his symptoms of cough and shortness of breath, and the development of a temperature to 102.4 at home this evening he presented to the ED for assessment. Principal Diagnosis COVID-19 Pneumonia, Hypoxia Discharge Exam Constitutional WD/WN, vitals as above + obese Eyes + anicteric sclerae Neck trachea midline, no thyromegaly Respiratory normal respiratory effort, lungs clear to auscultation Auscultation: + diminished lung sounds (throughout due to body habitus) Cardiovascular RRR, no murmur, no edema Chest (Breasts) Chest: normal inspection of chest Gastrointestinal (Abdomen) normal bowel sounds, soft, nontender, no hepatosplenomegaly Musculoskeletal Extremities: extremities normal to inspection; no cyanosis and no clubbing Skin no rashes, warm and dry Neurologic moves all extremities and awake; no focal motor deficits Psychiatric A+Ox3, euthymic affect Lymphatic no lymphedema Discharge Data Allergies Allergy/AdvReac Type Severity Reaction Status Date / Time No Known Drug Allergies Allergy Unknown NKDA Verified 07/09/20 10:08 Consultations 01/12/21 00:19 ED Decision to Admit Stat Ordered Studies CXR Hospital Course (1) Pneumonia due to COVID-19 virus: Pneumonia due to COVID-19 virus/multifocal pneumonia, secondary bacterial and primary viral/with hypoxia- Improved, now off oxygen even with ambulation. Not SOB Still with cough. Is now on day #9 of illness and improving -received Dexamethasone 6 mg IV every morning and will dc to home on po decadron to complete 10 day course received Ceftriaxone 2 g IV daily and Azithromycin 500 mg IV daily-dc to home to finish out a 7 and 5 day course of cefdinir and azithro, respectively -continue Hycodan syrup, 5 mL p.o. every 4 hours as needed severe cough no longer needs O2-ambulated and only dropped to 93%. Does briefly dip to 88% with cough but quickly recovers -continue prone position and incentive spirometry at home should have repeat CXR in 3-4 weeks to ensure resolution (2) Multifocal pneumonia: Most prominent on x-ray: Right upper lobe, and less so bilateral lower lobes. as above (3) Hypoxia: See above Lowest pulse ox recorded in the ED was 87% while on room air now resolved as above (4) Coronary artery disease, non-occlusive: CAD/hypertension-no acute issues Continue enalapril 20 mg daily, metoprolol succinate 50 mg daily, nitroglycerin sublingual as as needed (5) HTN (hypertension): BP controlled continue home meds (6) Diabetes mellitus with diabetic polyneuropathy: Continue insulin glargine 90 units subcu daily. restart metformin and Trulicity to be continued at home has some hyperglycemia secondary to steroids-advised to call PCP for Humalog or Novolog if has persistent glucose in 200s after discharge while on steroids (7) Hyperlipidemia: Continue fenofibrate (8) Chronic gout: Continue allopurinol (9) Acid reflux disease: Continue pantoprazole (10) BPH w urinary obs/LUTS: Not on any overt treatment at this time Monitor for retention-none noted Dispo-stable for dc to home Total Time Total Time Spent Total Time Spent (In Minutes): 35 min Total Time Includes: Examination of the Patient, Discharge Planning and Medication Reconciliation Discharge Plan Discharge Items Patient Disposition: Home - Self-Care Reason For Visit: COVID-19 PNEUMONIA W/ HYPOXIA, SECONDARY BACTE PNX Discharge Diagnosis: COVID-19 Pneumonia, Hypoxia, Secondary bacterial pneumonia-suspected Condition on Discharge: Fair Activity: As commented below Exercise/Sports: Gradually increase as tolerated Driving/Machine Use: No limitations Non-emergency contact: Primary Care Provider Call non-emergency contact if: you have any medication questions and your symptoms worsen Follow-up/Referrals: Dorie Guillen MD [Primary Care Provider] - (Follow up within 1-2 weeks.) Diet: Carb Consistent or DM2 and Heart Healthy Addtl Attending Provider Instructions: Please finish out the courses of azithromycin and cefdinir, as well as the dexam ethasone. Keep track of your pulse oximeter at home and if it falls below 88%, please return to the hospital. Continue to use the incentive spirometer 10 times per hour while awake and lie prone or on your side if possible to increase your oxygen levels. You can take the hycodan cough syrup as needed for cough. Please check your blood glucose before each meal and at bedtime. If your glucose levels are consistently in the 200s while on the dexamethasone, please call your PCP to get a temporary prescription for Humalog or Novolog insulin. Follow up with your PCP within 1-2 weeks. If you develop worsening chest pain, shortness of breath, calf/leg pain or swelling, or have any other acute concerns, please return to the hospital right away. Pending Studies at Discharge: No Stand-Alone Forms: [facility] Medications and DC Order Prescriptions: New azithromycin 250 mg Tablet 250 mg PO QAM Qty: 3 RF: 0 hydrocodone-homatropine [Hydromet] 5-1.5 mg/5 mL Syrup 5 ml PO Q4H PRN (Reason: cough) Qty: 473 RF: 0 dexamethasone 6 mg tablet 6 mg PO DAILY Qty: 7 RF: 0 cefdinir 300 mg capsule 300 mg PO BID 4 Days Qty: 8 RF: 0 Continued Trulicity 1.5 mg/0.5 mL pen injector 1.5 mg SQ .COMPLEX Qty: 2 RF: 11 allopurinol 100 mg tablet 100 mg PO DAILY Qty: 90 RF: 3 allopurinol 300 mg tablet 300 mg PO DAILY Qty: 90 RF: 3 pantoprazole 40 mg tablet,delayed release (DR/EC) 40 mg PO DAILY Qty: 90 RF: 3 fenofibrate micronized 134 mg capsule 134 mg PO DAILY Qty: 90 RF: 3 insulin glargine 100 unit/mL solution See Rx Instructions subcut DAILY Qty: 30 RF: 5 metformin 850 mg tablet 850 mg PO TID Qty: 270 RF: 3 tramadol 50 mg tablet 50 - 100 mg PO QID PRN (Reason: pain) Qty: 180 RF: 2 ondansetron HCl 4 mg tablet 4 mg PO QID PRN (Reason: nausea and vomiting) Qty: 30 RF: 1 zolpidem 10 mg tablet 10 mg PO HS Qty: 30 RF: 5 albuterol sulfate [Ventolin HFA] 90 mcg/actuation HFA aerosol inhaler 2 puff inhalation Q6H PRN (Reason: shortness of breath or wheezing) Qty: 18 RF: 1 (DME) pen needle, diabetic [BD Ultra-Fine Mini Pen Needle] 31 gauge x 3/16" needle See Dose Instructions .ROUTE .MEDSUPPLY Qty: 30 RF: 0 ferrous sulfate 325 mg (65 mg iron) tablet 325 mg PO DAILY Qty: 90 RF: 3 nitroglycerin [Nitrostat] 0.4 mg tablet, sublingual 0.4 mg SL Q5M PRN (Reason: chest pain) Qty: 20 RF: 3 Vascepa 1 gram capsule 2 gm PO BID Qty: 360 RF: 3 (DME) diabetic shoes and custom inserts Qty: 1 RF: 0 Linzess 72 mcg capsule 72 mcg PO DAILY RF: 0 cyanocobalamin (vitamin B-12) 5,000 mcg tablet, sublingual 5,000 mcg SL DAILY Qty: 90 RF: 3 enalapril maleate 20 mg tablet 20 mg PO DAILY Qty: 90 RF: 3 metoprolol succinate 50 mg tablet extended release 24 hr 50 mg PO DAILY Qty: 90 RF: 3 (DME) insulin syringe-needle U-100 [BD Insulin Syringe Ultra-Fine] 1 mL 31 gauge x 5/16 syringe See Rx Instructions .ROUTE .MEDSUPPLY Qty: 100 RF: 3 Discontinued azithromycin 250 mg tablet See Rx Instructions PO .COMPLEX Qty: 6 RF: 0 Discharge Orders: Discharge Order (Routine); Ordered 01/13/21 Ordered By: Gale Vaughan/Other Patient Handouts: Managing Type 2 Diabetes, Managing Diabetes: The A1C Test Admission Data Admit Date/Time: 01/12/21 01:46 Attending Provider: Gale Boyle Admit Provider: Luis F Mcmullen Primary Care Provider: Dorie Guillen Other Providers: Luis F Mcmullen Coding Level of Care Code D/C Day Management >30 mins Diagnoses Pneumonia due to COVID-19 virus U07.1; J12.82 Multifocal pneumonia J18.9 Hypoxia R09.02 Coronary artery disease, non-occlusive I25.10 HTN (hypertension) I10 Diabetes mellitus with diabetic polyneuropathy E11.42 Hyperlipidemia E78.5 Chronic gout M1A.9XX0 Acid reflux disease K21.9 BPH w urinary obs/LUTS N40.1; N13.8
== END 2021-01-13 15:00 | disposition home or self-care (01) | DRG 177 ==
LOC: ED 21:22 → SUATTDRO 01-12 01:46 → 2E 01-12 01:46